=== PATIENT | female | born 1970 | race Caucasian/White ===

== ENCOUNTER → 2016-04-25 | Outpatient (CLI) | payer MEDICARE, OTHER ==
[2014-11-09 08:40] VITALS: BP 154/63
[~2016-04-25] MED LIST: ATOR40TA PO; BACL10TA PO; CETI10TA22 PO; CLON1TAB PO; DIAZ5TAB4 PO; ESOM20CA PO; FLUT16SP NS; GABA-585 PO; GABA600T2 PO; HYDR12.53 PO; IBUP-1060 PO; LEVO40CA PO; LINA145C PO; LORA-434 PO; LURA120T PO; MELA5TAB PO; MULT-245 PO; NAPR500T PO; OMEG1CAP6 PO; OMEP40CA5 PO; OXYC-244 PO; PANT40TA5 PO; PARO40TA45 PO; PNV1TABL71 PO; PRAZ1CAP2 PO; QUET100T4 PO; QUET300T5 PO; QUET50TA5 PO; RIZA10TA10 PO; TRAZ150T55 PO; ZOLP10TA PO; [UNRECOGNIZED DRUG - OTHER]
--- NOTE | 2016-04-25 17:22 | PAIN ---
DATE OF SERVICE: 04/25/2016 PROGRESS NOTE DIAGNOSIS: Lumbar radiculopathy. HISTORY OF PRESENT ILLNESS: The patient is a 45-year-old female who returns for followup status post lumbar epidural steroid injection x 1 in this series on 03/28/2016. The patient reports about 70% improvement in her low back and right lower extremity pain. The patient reports she still has some pain in the right thigh, but it is much better. Still having some significant pain, however, rated as a 7 on a scale of 10, describes as aching and dull with some shooting pain into the right lateral and anterior thigh, mostly with walking. The patient reports she is sleeping better at night, though has been increasing her activity with greater comfort. Still some pain and is still taking Percocet at 7.5 mg, which has not been helping the leg pain as much as it normally would, with recent cold weather that we have had. The patient reports otherwise doing well. No new motor or sensory deficits, no new bowel or bladder incontinence or other complaints. The patient's old chart was reviewed as her current medication regimen updated. Current review of systems updated today as well. PHYSICAL EXAMINATION: VITAL SIGNS: Today, the patient's blood pressure is 129/92, pulse 94, respirations 16, temperature is 98.3 degrees Fahrenheit, height 5 feet 4 inches, and weighs 227 pounds. GENERAL: The patient is awake, alert, oriented, appropriate, very pleasant demeanor. HEENT: Shows normocephalic, atraumatic. Extraocular movements are intact and symmetrical. Oral cavity shows mucous membranes moist and pink. Dentition is intact. NECK: Shows anterior throat supple. CHEST: Shows breath sounds clear to auscultation bilaterally. HEART: Shows S1 and S2 clear. ABDOMEN: Obese, soft, nontender, nondistended. BACK: Shows spine grossly in midline. Lumbar paraspinous muscle shows some diffuse tenderness throughout the upper, middle and lower distribution of paraspinous muscles bilaterally, good rotation and motion; however, both laterally greater than 10 degrees, full extension greater than 10 degrees, forward flexion greater than 45 degrees. EXTREMITIES: The patient's lower extremities show deep tendon reflexes at 1+ in the patellar and tendo calcaneus tendons and are equal. Motor exam is strong with 5/5 dorsiflexion, extension, quadriceps and hamstring flexion and symmetrical. PLAN: Options were discussed with the patient. We will hold on further injections at this time as she feels she is doing fairly well. We will try Medrol Dosepak in the meantime. Also refill the patient's oxycodone at 7.5 mg. The patient was given instruction as well as side effects to be aware with each of the medications. We will follow in approximately 4 weeks. We will plan on second lumbar epidural steroid injection if the pain is any worse at that time or sooner if necessary. KAELYN CUNNINGHAM MD DR: NITIN/mariya JOB#: [id number] / [id number]
== END | disposition home or self-care (01) ==
LOC: PNCL 09:32
PROVIDERS: ATTEND Anesthesiology
DX: M54.16 Radiculopathy, lumbar region (principal)
CPT/HCPCS: G0463

== ENCOUNTER → 2016-05-15 | Outpatient (CLI) | payer MEDICARE, OTHER ==
[2014-11-09 08:40] VITALS: BP 154/63
--- NOTE | 2016-05-15 21:30 | PAIN ---
DATE OF SERVICE: 05/15/2016 PROGRESS NOTE DIAGNOSIS: Lumbar radiculopathy. HISTORY OF PRESENT ILLNESS: The patient is a 45-year-old female who returns for followup status post lumbar epidural steroid injection x 1. The patient reports she did very well about 70-75% improvement in her low back and right lower extremity pain. The patient reports the pain is still present, but much better than it was. The patient has been taking oxycodone 7.5 mg as well and has done fairly well with this with good pain relief and no side effects, again with about 70% improvement with medications alone. The patient reports the pain as a 7 on a scale of 10. It is beginning to increase, but not quite to the point where she is ready for an injection. She likes to wait until this is very much necessary with her pain and level is not to that point by her report. The patient reports it is aching, stabbing, throbbing pain in the low back and legs, but on most days is fairly well controlled without significant impedance of her daily activities. The patient has been sleeping well at night. Reports no new motor or sensory deficits, no new bowel or bladder incontinence or other complaints. Again reports her pain as a 7 on a scale of 10 at its worse. PHYSICAL EXAMINATION: VITAL SIGNS: The patient's blood pressure is 156/84, pulse 101, respirations are 18, temperature 98.9 degrees Fahrenheit. Height is 5 feet 4 inches and weighs 225 pounds. GENERAL: The patient is awake, alert, oriented, appropriate, very pleasant demeanor. HEENT: Shows normocephalic, atraumatic. Extraocular movements are intact and symmetrical. Oral cavity shows mucous membranes are moist and pink. Dentition is intact. NECK: Shows anterior throat supple without palpable lymphadenopathy noted. Swallow reflex is symmetrical. Neck shows full rotation and motion of cervical spine without difficulty. CHEST: Shows normal on inspection. Breath sounds are clear to auscultation bilaterally. HEART: Shows S1 and S2 clear. ABDOMEN: Shows normal on inspection. It is nontender, nondistended. No palpable organomegaly is noted. No rebound or guarding demonstrated. BACK: The patient's back shows grossly midline spine. Lumbar paraspinous muscles show some moderate tenderness with palpation, but without significant radiation. No atrophy, hypertrophy. No tenderness with palpation over the sacrum or sacroiliac regions or the spinous processes. The patient shows good rotation and motion of the lumbar spine, both laterally as well as extension and flexion. EXTREMITIES: Lower extremities show deep tendon reflexes 1+ in the patellar and tendo calcaneus tendons. Motor exam is strong with 5/5 dorsiflexion and extension bilaterally. Peripheral pulses are 1+ posterior tibial and dorsalis pedis pulses. No peripheral edema is noted. No clubbing, no cyanosis. PLAN: Options were discussed with the patient. The patient's old chart was reviewed as her current medications and updated. Current review of systems updated today as well. We will plan on refilling patient's oxycodone with 7.5 mg with instructions and side effects to be aware of discussed. Also, we will plan the patient return in about one month for potential second lumbar epidural steroid injection at that time. If the pain is returning to a significant extent, the patient was encouraged to call prior to that if pain returns to greater degree as well and was counseled as to activity level as well as side effects to be aware of with the medication. Also, maintain the patient's hydration status and walking, exercising, stretching as best as she can with her abilities and the patient will follow up as scheduled or prior if necessary. KAELYN CUNNINGHAM MD DR: NITIN/mariya JOB#: [id number] / [id number]
== END | disposition home or self-care (01) ==
LOC: PNCL 11:14
PROVIDERS: ATTEND Anesthesiology
DX: M54.16 Radiculopathy, lumbar region (principal)
CPT/HCPCS: G0463

== ENCOUNTER → 2016-06-12 | Outpatient (CLI) | payer MEDICARE, OTHER ==
[2014-11-09 08:40] VITALS: BP 154/63
[~2016-06-12] MED LIST changes: +IOHEXOL 180 MG/ML 10 ML VIAL. ONE; +methylPREDNISolone ACETATE 40 MG/ML VIAL. ONE; +methylPREDNISolone ACETATE 80 MG/ML VIAL. ONE
--- NOTE | 2016-06-13 02:52 | PAIN ---
DATE OF SERVICE: 06/12/2016 DIAGNOSES: Lumbar radiculopathy. HISTORY OF PRESENT ILLNESS: The patient is a 45-year-old female who returns for followup status post medication management and lumbar epidural steroid injections. She has had one injection in this series, which was on 03/28/2016. The patient had about 70% improvement after that injection #1. She reports the pain is now returning. She complains that her oxycodone has been less and less effective. We discussed this in some extent with her last visit and today and will change this as she seems to be developing some physiologic tolerance. The patient reports otherwise stabbing pain in the low back, right lower extremity, mostly in the anterior medial aspect of the thigh across the thigh into the medial knee on the right side, worse with walking, standing, change in positions, now waking her from sleep occasionally, but not every night. It is a stabbing, throbbing sensation, rates it 9 on a scale of 10. The patient reports no left-sided symptoms, much worse with standing and walking and bending or flexing, but better with sitting and usually better with lying down, but again this awakens her from sleep more frequently recently, but not every night. PHYSICAL EXAMINATION: VITAL SIGNS: The patient's blood pressure 113/79, pulse 93, respirations 18, temperature 98.4 degrees Fahrenheit. Height is 5 feet 4 inches, weight is 219 pounds. GENERAL: The patient is awake, alert and oriented, appropriate, very pleasant demeanor. HEENT: Head shows normocephalic and atraumatic. Extraocular movements are intact and symmetrical. Oral cavity shows mucous membranes moist and pink. Dentition is intact. NECK: Shows anterior throat supple without palpable lymphadenopathy noted. Swallow reflex is symmetrical. CHEST: Shows normal on inspection. Breath sounds are clear to auscultation bilaterally. HEART: Shows S1 and S2 clear. ABDOMEN: Obese, soft, nontender, nondistended. No palpable organomegaly is noted. No rebound or guarding demonstrated. BACK: Shows spine grossly midline. Lumbar paraspinous muscle shows some moderate tenderness with palpation throughout the upper, middle, lower distribution of paraspinous muscles, but is firm and moderately tender to palpation again without radiation, without atrophy, hypertrophy or asymmetry. No tenderness over the spinous processes over the sacrum and sacroiliac regions as well. EXTREMITIES: Lower extremities show deep tendon reflexes at 1+ in the patellar tendons. Motor exam is strong with dorsiflexion, extension, quadriceps and hamstring flexion 5/5 and equal bilaterally. Peripheral pulses are 1+ posterior tibial and dorsalis pedis pulses. No peripheral edema is noted. Options were discussed with the patient and the patient's old chart was reviewed as her current medication regimen updated. Current review of systems updated today as well. We will proceed with a second lumbar epidural steroid injection in this series with fluoroscopic guidance. Risks were again discussed including, but not limited to bleeding, infection, possibility of epidural hematoma, subsequent neurologic compromise, dural puncture, headaches, spinal cord and/or nerve damage, side effects of steroid medication and poor results regarding pain control. The patient understands and wishes to proceed. The patient will return to clinic in approximately 2 weeks for followup. She was given refill prescription for Motrin 800 mg 3 times daily. Also, we will change the patient's Percocet to hydrocodone at 10 mg to take up to 4 times daily. The patient was given instruction as well as side effects to be aware with the steroid medications, also encouraged to maintain activity, standing, walking and exercising, stretching as well at home, talked about dietary restrictions as well. As she is trying to lose some weight, offered professional dietitian if necessary. The patient is not sure if she wants to do this at this point, but will discuss this again in the future as well. DIAGNOSIS: Lumbar radiculopathy. PROCEDURE: Lumbar epidural steroid injection using a C-arm fluoroscopic guidance under sterile prep and drape using local anesthetic at the L4-L5 level in translaminar fashion. Medication injection is 20 mg Depo-Medrol plus 10 mL of preservative-free normal saline and 2 mL of Isovue for contrast. CONDITION AT DISCHARGE: Stable. The patient tolerated procedure well, had no complications. KAELYN CUNNINGHAM MD DR: NITIN/mariya JOB#: [id number] / [id number]
== END | disposition home or self-care (01) ==
LOC: PNCL 10:35
PROVIDERS: ATTEND Anesthesiology
DX: M54.16 Radiculopathy, lumbar region (principal); E78.00 Pure hypercholesterolemia, unspecified; I10 Essential (primary) hypertension; K21.9 Gastro-esophageal reflux disease without esophagitis; F41.9 Anxiety disorder, unspecified; F32.9 Major depressive disorder, single episode, unspecified; M19.90 Unspecified osteoarthritis, unspecified site; Z98.890 Other specified postprocedural states; Z72.89 Other problems related to lifestyle; Z90.710 Acquired absence of both cervix and uterus; Z87.39 Personal history of other diseases of the musculoskeletal system and connective tissue
CPT/HCPCS: 62323; J1030; J1040

== ENCOUNTER → 2016-07-10 | Outpatient (CLI) | payer MEDICARE, OTHER ==
[2014-11-09 08:40] VITALS: BP 154/63
[~2016-07-10] MED LIST changes: -IOHEXOL 180 MG/ML 10 ML VIAL. ONE; +VORT20TA PO; -methylPREDNISolone ACETATE 40 MG/ML VIAL. ONE; -methylPREDNISolone ACETATE 80 MG/ML VIAL. ONE
--- NOTE | 2016-07-10 23:44 | PAIN ---
DATE OF SERVICE: 07/10/2016 DIAGNOSES: Lumbar radiculopathy with low back pain. HISTORY OF PRESENT ILLNESS: The patient is a 45-year-old female who returns for followup status post lumbar epidural steroid injection x2. The patient reports she did well about 60% improvement after last injection, still pain returning in the low back and right leg. We had tried changing her oxycodone to hydrocodone on her last visit, but the hydrocodone was not helpful or appreciably noticeable with decreasing in pain in the low back and right leg. The patient reports it is 8 on a scale of 0 to 10, stabbing, throbbing without significant decrease with the hydrocodone. The patient reports otherwise doing well. No new motor or sensory deficits, no new bowel or bladder incontinence. The patient's pain is 8 on a scale of 10 currently. PHYSICAL EXAMINATION: VITAL SIGNS: The patient's blood pressure 110/74, pulse 85, respirations 18, temperature 98.4 degrees Fahrenheit, height is 5 feet 4 inches, weighs 223 pounds. GENERAL: The patient is awake, alert, oriented, appropriate, very pleasant demeanor. HEENT: Head shows normocephalic, atraumatic. Extraocular movements are intact, symmetrical. Oral cavity, mucous membranes moist and pink. Dentition is intact. NECK: Shows anterior throat supple without palpable lymphadenopathy noted. Swallow reflex is symmetrical. Neck shows full rotational motion of the cervical spine without difficulty or tenderness. CHEST: Shows normal on inspection. Breath sounds clear to auscultation bilaterally. HEART: Shows S1 and S2 clear. No murmurs auscultated. ABDOMEN: Soft, obese, nontender, nondistended. No palpable organomegaly is noted. No rebound or guarding demonstrated. BACK: Shows spine grossly midline. Moderate tenderness with palpation in the upper, middle and lower distribution to paraspinous muscles bilaterally, but is roughly symmetrical on inspection. Muscle girth is normal and firm without radiation, without asymmetry, no tenderness over the spinous processes, sacrum or sacroiliac regions. The patient shows good rotation and motion of the lumbar spine, both laterally as well as extension and flexion without difficulty. EXTREMITIES: Lower extremities show deep tendon reflexes 1+ in the patellar and tendo calcaneus tendons are equal. Motor exam is strong with 5/5 dorsiflexion and extension as well as quadriceps and hamstring flexion. Options were discussed with the patient and the patient's old chart was reviewed as her current medication regimen and updated. Current review of systems updated to date as well. We will change back to the oxycodone at 10 mg instead of hydrocodone as she is not having any appreciable results with this. Also, we will plan on third lumbar epidural steroid injection on her next visit in about 4 weeks. The patient was given instructions as well as side effects to be aware with medication and will follow up as scheduled. KAELYN CUNNINGHAM MD DR: NITIN/mariya JOB#: [id number] / [id number] ANIVAL Cole MD
== END | disposition home or self-care (01) ==
LOC: PNCL 10:28
PROVIDERS: ATTEND Anesthesiology
DX: M54.16 Radiculopathy, lumbar region (principal)
CPT/HCPCS: G0463

== ENCOUNTER → 2016-08-07 | Outpatient (CLI) | payer MEDICARE, OTHER ==
[2014-11-09 08:40] VITALS: BP 154/63
[~2016-08-07] MED LIST changes: +OXYC-250 PO; +TEST5GEL TP; +methylPREDNISolone ACETATE 40 MG/ML VIAL. ONE; +methylPREDNISolone ACETATE 80 MG/ML VIAL. ONE
--- NOTE | 2016-08-08 00:53 | PAIN ---
DATE OF SERVICE: 08/07/2016 PROGRESS NOTE FOR PAIN CLINIC DIAGNOSIS: Lumbar radiculopathy at ____. HISTORY OF PRESENT ILLNESS: The patient is a 45-year-old female, who returns for followup status post lumbar epidural steroid injections as well as medication management with oxycodone and we changed her dose to 10 mg on her Percocet. At last visit, she reports a significant improvement with this, but still has significant pain across the low back into the right lower extremity as it was previously. The patient reports no new motor or sensory deficits, no new bowel or bladder incontinence, but still pain in the low back, right leg radiating to the anterior thigh, medial thigh and medial lower leg ranged as 7 on a scale of 10, worse with walking and standing, better with sitting down, lying down as a 3 on a scale of 10, but it does awaken her from sleep at least once at night here within the past couple of weeks. The patient reports no new motor or sensory deficits, no new bowel or bladder incontinence or other complaints. PHYSICAL EXAMINATION: VITAL SIGNS: The patient's blood pressure 108/77, pulse 85, respirations are 20, temperature is 98.3 degrees Fahrenheit, weight is 219 pounds. GENERAL: The patient is awake, alert, oriented, appropriate, very pleasant demeanor. HEENT: Shows normocephalic, atraumatic. Extraocular movements are intact and symmetrical. Oral cavity, mucous membranes are moist and pink. Dentition is intact. NECK: Shows anterior throat supple without palpable lymphadenopathy noted. Swallow reflex is symmetrical. CHEST: Shows normal on inspection. Breath sounds clear to auscultation bilaterally. HEART: Shows S1 and S2 clear. No murmurs auscultated. ABDOMEN: Obese, soft, nontender, nondistended. No palpable organomegaly noted. BACK: The patient's back shows spine grossly midline. Slight exaggeration of thoracic kyphosis and mild flattening of lumbar lordotic curvature. Lumbar paraspinous musculature appears symmetrical on inspection with palpation shows some very mild tenderness with palpation in the lower lumbar distribution only, but without radiation or asymmetry. No tenderness over the sacrum or sacroiliac regions. The patient shows good rotation and motion of the lumbar spine, both laterally as well as extension and flexion without significant pain reported. EXTREMITIES: Lower extremities show deep tendon reflexes 1+ in the patellar and tendo calcaneus tendons are equal. Motor exam is strong with 5/5 dorsiflexion, extension, quadriceps and hamstring flexion equal. Options were discussed with the patient. We will proceed with a lumbar epidural steroid injection today is the third in this series with fluoroscopic guidance. Risks were again discussed including, but not limited to bleeding, infection, possibility of epidural hematoma, subsequent neurologic compromise, dural puncture, headache, spinal cord and/or nerve damage, side effects of steroid medication and poor results regarding pain control. The patient understands and wishes to proceed. The patient will return to clinic in approximately 2 weeks for followup. She was counseled on return appointment, activity level and side effects to be aware of. The patient given refill prescription on her medication oxycodone with instructions, side effects to be aware of discussed as well. DIAGNOSIS: Lumbar radiculopathy. PROCEDURE: Lumbar epidural steroid injection in translaminar approach at the L4-L5 level using a C-arm fluoroscopic guidance under sterile prep and drape using local anesthetic. MEDICATIONS INJECTED: Depo-Medrol 120 mg plus 10 mL of preservative-free normal saline and 2 mL of Isovue for contrast. CONDITION AT DISCHARGE: Stable. The patient tolerated procedure well, had no complications. KAELYN CUNNINGHAM MD DR: NITIN/mariya JOB#: [id number] / [id number]
== END | disposition home or self-care (01) ==
LOC: PNCL 10:39
PROVIDERS: ATTEND Anesthesiology
DX: M54.16 Radiculopathy, lumbar region (principal); E78.00 Pure hypercholesterolemia, unspecified; I10 Essential (primary) hypertension; M19.90 Unspecified osteoarthritis, unspecified site; F41.9 Anxiety disorder, unspecified; F32.9 Major depressive disorder, single episode, unspecified; Z72.89 Other problems related to lifestyle; Z72.0 Tobacco use; Z90.710 Acquired absence of both cervix and uterus
CPT/HCPCS: 62323; J1030; J1040

== ENCOUNTER → 2016-09-25 | Outpatient (CLI) | payer MEDICARE, OTHER ==
[2014-11-09 08:40] VITALS: BP 154/63
[~2016-09-25] MED LIST changes: +IOHEXOL 180 MG/ML 10 ML VIAL. ONE
--- NOTE | 2016-09-25 08:36 | PN ---
DATE: 09/25/2016 PROGRESS NOTE FOR PAIN CLINIC DIAGNOSES: Lumbar radiculopathy. HISTORY OF PRESENT ILLNESS: The patient is a 46-year-old female who returns for followup, status post lumbar epidural steroid injections with good results, most recently on 08/07/2016. The patient did very well with this, reports approximately 70% improvement initially, now with pain returning in the low back and right leg as it was previously. The patient reports it as a 10 on a scale of 10, it is cramping, stabbing, sharp, severe, constant and becomes unbearable with walking and standing, better with lying down or sitting. She is sleeping about 8 hours a night, does not awaken her from sleep when she is lying down. The patient reports no new motor or sensory deficits, no new bowel or bladder incontinence or other complaints. PHYSICAL EXAMINATION: VITAL SIGNS: The patient's blood pressure is 130/67, pulse 67, respirations 18, temperature 98.1 degrees Fahrenheit. Height is 5 feet 4 inches, weighs 219 pounds. GENERAL: The patient is awake, alert, oriented, appropriate, has a very pleasant demeanor. HEENT: Head shows normocephalic, atraumatic. Extraocular movements are intact and symmetrical. Oral cavity shows mucous membranes moist and pink. Dentition is intact. NECK: Shows anterior throat supple without palpable lymphadenopathy noted. Swallow reflex is symmetrical. CHEST: Shows normal on inspection. Breath sounds are clear to auscultation bilaterally. HEART: Shows S1 and S2. ABDOMEN: Soft, obese, nontender, nondistended. No palpable organomegaly. There is no rebound or guarding demonstrated. BACK: Shows spine grossly in the midline. Slight exaggeration of thoracic kyphosis. Lumbar lordotic curvature mildly flattened. With inspection shows symmetrical paraspinous musculature. With palpation shows some moderate tenderness, but only diffusely in the lower lumbar distribution without radiation. EXTREMITIES: Lower extremities showed deep tendon reflexes 1+ in the patellar and tendo calcaneus tendons are equal. Motor exam is strong with dorsiflexion and extension, rated at 5/5 and symmetrical. Options were discussed with the patient. The patient's old chart was reviewed as her current medication regimen updated. Current review of systems updated today as well. We will proceed with a lumbar epidural steroid injection, today is the first in the series with fluoroscopic guidance. Risks were again discussed including, but not limited to bleeding, infection, possibility of epidural hematoma, subsequent neurologic compromise, dural punctures, headaches, spinal cord and/or nerve damage, side effects of steroid medication and poor results regarding pain control. The patient understands and wishes to proceed. The patient will return to clinic in approximately 2 weeks for followup, was counseled on return appointment, activity level and side effects to be aware of. The patient was also given refill prescriptions for oxycodone 10 mg with instructions and side effects to be aware of discussed as well. DIAGNOSIS: Lumbar radiculopathy. PROCEDURE: Lumbar epidural steroid injection in translaminar approach at the L5-S1 level using C-arm fluoroscopic guidance under sterile prep and drape using local anesthetic. Medication injected is 120 mg Depo-Medrol plus 10 mL preservative free normal saline and 2 mL of Isovue for contrast. CONDITION AT DISCHARGE: Stable. The patient tolerated the procedure well, had no complications. KAELYN CUNNINGHAM MD DR: NITIN/mariya JOB#: [id number] / [id number]
== END ==
LOC: PNCL 07:33
PROVIDERS: ATTEND Anesthesiology
DX: M54.16 Radiculopathy, lumbar region (principal)
CPT/HCPCS: 62323; J1030; J1040

== ENCOUNTER → 2016-10-23 | Outpatient (CLI) | payer MEDICARE, OTHER ==
[2014-11-09 08:40] VITALS: BP 154/63
[~2016-10-23] MED LIST changes: -IOHEXOL 180 MG/ML 10 ML VIAL. ONE; -OXYC-244 PO; -OXYC-250 PO; +OXYC-327 PO; +OXYC-328 PO; -PARO40TA45 PO; +PARO40TA61 PO; +TRAZ150T49 PO; -TRAZ150T55 PO; -methylPREDNISolone ACETATE 40 MG/ML VIAL. ONE; -methylPREDNISolone ACETATE 80 MG/ML VIAL. ONE
== END | disposition home or self-care (01) ==
LOC: PNCL 08:20
PROVIDERS: ATTEND Anesthesiology
DX: M54.16 Radiculopathy, lumbar region (principal)
CPT/HCPCS: G0463

== ENCOUNTER 2016-11-19 16:09 | Inpatient (IN) | payer MEDICARE, OTHER ==
[~2016-11-19] VITALS: Ht 162.6 cm; Wt 94.9 kg
[2016-11-19 16:55] VITALS: BP 125/82
[2016-11-19 17:49] LABS: BASO # 0.1 x10^3/uL (0.0-0.2); BASO % 0 % (0-3); EOS % 0 % (0-3); HEMATOCRIT 50.9 % (36.0-47.0); HEMOGLOBIN 16.5 g/dL (12.0-15.5); LYMPH # 0.8 x10^3/uL (1.0-4.8); LYMPH % 6 % (24-48); MEAN CORPUSCULAR HEMOGLOBIN 31 pg (25-35); MEAN CORPUSCULAR HGB CONC 32 g/dL (31-37); MEAN CORPUSCULAR VOLUME 96 fL (79-100); MONO % 4 % (0-9); NEUT % 90 % (31-73); PLATELET COUNT 163 x10^3/uL (140-400); RED BLOOD COUNT 5.32 x10^6/uL (3.50-5.40); WHITE BLOOD COUNT 14.4 x10^3/uL (4.0-11.0)
[2016-11-19 18:10] LABS: PLT ESTIMATE ADEQUATE (ADEQUATE)
[2016-11-19 18:20] LABS: ALBUMIN 3.3 g/dL (3.4-5.0); ALBUMIN/GLOBULIN RATIO 0.8 (1.0-1.7); CALCIUM 9.2 mg/dL (8.5-10.1); CREATININE 1.1 mg/dL (0.6-1.0); POTASSIUM 4.3 mmol/L (3.5-5.1); TOTAL BILIRUBIN 0.5 mg/dL (0.2-1.0); TOTAL PROTEIN 7.7 g/dL (6.4-8.2)
[2016-11-19 19:00] VITALS: BP 128/84
[2016-11-19] MEDS: IPRATRPIUM/ALBUTEROL 0.5/2.5MG 3 ML NEBU. NEB SCH ×2 (19:36→20:00)
[2016-11-19] MEDS ORDERED: oxyCODONE/APAP 10/325 1 TAB TABLET PO PRN (20:00)
[2016-11-19 20:10] VITALS: BP 125/82
[2016-11-19] MEDS ORDERED: QUEtiapine 100 MG TABLET. PO SCH (21:00)
[2016-11-19] MEDS: traZODone 50 MG TABLET. PO SCH (21:25)
[2016-11-19] MEDS: NICOTINE 21MG PATCH. TD SCH (21:25)
[2016-11-19] MEDS: methylPREDNISolone SOD SUCC PF 40 MG/ML VIAL. IV SCH (21:25)
[2016-11-19] MEDS: oxyCODONE/APAP 10/325 1 TAB TABLET PO PRN (21:35)
[2016-11-19 23:00] VITALS: BP 124/74
--- NOTE | 2016-11-19 23:41 | PAIN PROC ---
DATE OF SERVICE: 11/19/2016 CHIEF COMPLAINT: Respiratory distress. HISTORY OF PRESENT ILLNESS: A 46-year-old white female with history of chronic tobacco use, has had increasing cough, shortness of breath and fatigue for 3 days. She denies sputum production, chest pain, hemoptysis, chills, fever or other specific complaints. She was moderately hypoxic in the office with a saturation of 80% and was admitted for respiratory support. PAST HISTORY: Multiple psych meds listed per the chart. ALLERGIES: DOXYCYCLINE NOTED. SHE JUST FINISHED TAKING SOME PREDNISONE FOR A SKIN REACTION. PAST SURGICAL HISTORY: Surgically, she has had a hysterectomy, rectovaginal surgery, appendectomy, tonsillectomy and eye surgeries as well as right wrist fracture and repair. SOCIAL HISTORY: Moderately heavy smoker, a pack and a half a day. She is single, not sexually active and nondrinker as well. FAMILY HISTORY: Positive for heart disease and diabetes in her father, otherwise unremarkable. REVIEW OF SYSTEMS: No other specific complaints. OBJECTIVE: ENT: cyanotic lips, otherwise all within normal limits. NECK: No nodes, masses or thyroid enlargement. LUNGS: Bilateral inspiratory crackles and expiratory wheezes, mild tachypnea. CARDIOVASCULAR: Regular rate. Heart rate 100, no murmur. ABDOMEN: Obese, soft and nontender. EXTREMITIES: Good pedal and radial pulses, 2-3+; nail bed clubbing, no edema, no joint or skin lesions. SKIN: Skin is very dry. NEUROLOGIC: Physiologic flat affect, consistent with medications, but no focal findings, otherwise oriented x 4. ASSESSMENT: Clinical chronic obstructive pulmonary disease with secondary hypoxia, suspect the underlying respiratory infection is most likely cause. PLAN: As ordered. ANIVAL RODRIGUEZ MD DR: FLORENCE/mariya JOB#: [id number] / [id number]
[2016-11-20 03:00] VITALS: BP 134/72
[2016-11-20] MEDS: oxyCODONE/APAP 10/325 1 TAB TABLET PO PRN ×4 (05:15→20:48)
--- NOTE | 2016-11-20 05:22 | ACF ---
Admission Forms Criteria COPD Clinical Indications for Admission to Inpatient Care (Place 'X' for any and all applicable criteria): Admission is indicated for ANY ONE of the following (1)(2)(3): [X]I. Acute exacerbation by high-risk comorbidity (e.g., pneumonia, dysrhythmia, heart failure, pleural effusion, pneumothorax) or severe underlying COPD (e.g., steroid dependent) [ ]II. Inpatient admission required rather than observation care (see Chronic Obstructive Pulmonary Disease: Observation Care) because of ANY ONE of the following: [ ]a) New or pre-existing signs or symptoms of COPD (eg, dyspnea or Tachypnea at rest or with minimal activity) that persist despite outpatient and observation care treatment [ ]b) New-onset hypoxemia (room air SaO2 less than 90%, PO2 less than 60 mm Hg (8.0 kPa)) that persists despite outpatient and observation care treatment [ ]c) Worsening of pre-existing hypoxemia (eg, new or increased requirement for supplemental oxygen to maintain oxygenation at baseline level) that persists despite outpatient and observation care treatment, with oxygen treatment needs performable only in acute inpatient setting [ ]d) Hypercarbia (PCO2 greater than 40 mm Hg (5.3 kPa))-induced respiratory acidosis (pH less than 7.35) that persists despite outpatient and observation care treatment [ ]e) Supplemental oxygen or respiratory treatments for over 24 hours that are performable only in acute inpatient setting [ ]f) Chest tube placement with active evacuation (e.g., suction, drainage) (5) [ ]g) Other condition, treatment or monitoring requiring inpatient admission [ ]III. Planned invasive surgical or diagnostic procedures requiring acute- care hospitalization [ ]IV. Acute respiratory failure (e.g., uncompensated hypercarbia, severe hypoxemia) [ ]V. Severe comorbid condition (e.g., severe steroid myopathy, acute vertebral fracture) that has acutely worsened pulmonary function [ ]. Confusion state, lethargy, obtundation, stupor or coma Extended stay beyond goal length of stay may be needed for (31)(32): [ ]a ) Respiratory Failure. [ ]b) Severe or persisting hypoxemia or hypercarbia [ ]c) Severe or persistent dyspnea [ ]d) Comorbidities (e.g. chronic heart failure, atrial fibrillation with rapid response, pneumonia) [ ]e) Malnutrition The original [facility] content created by [facility] has been revised. The portions of the content which have been revised are identified through the use of italic text or in bold, and [facility] has neither reviewed nor approved the modified material. All other unmodified content is copyright [facility]. Please see references footnoted in the original [facility] edition 2016 Admission Criteria Met?: Yes KIT NI Nov 20, 2016 05:22
[2016-11-20 07:00] VITALS: BP 122/75
--- NOTE | 2016-11-20 07:17 | RAD ---
Chest, 2 views, 11/19/2016: History: Hypoxia Comparison is made to a study from 06/26/2013. The heart size is normal. There are mild patchy bilateral pulmonary infiltrates. A lesser degree of infiltrate was present on the previous study. The pulmonary vascularity is somewhat poorly defined. No pleural fluid is seen. IMPRESSION: Mild bilateral pulmonary infiltrates suggesting pneumonia. Pulmonary edema or chronic lung disease are less likely possibilities.
[2016-11-20] MEDS: PANTOPRAZOLE 40 MG TABLET.DR. PO SCH (08:10)
[2016-11-20] MEDS: LURASIDONE 40 MG TABLET. PO SCH (08:10)
[2016-11-20] MEDS: NICOTINE 21MG PATCH. TD SCH (08:10)
[2016-11-20] MEDS: methylPREDNISolone SOD SUCC PF 40 MG/ML VIAL. IV SCH ×2 (08:11→20:47)
[2016-11-20] MEDS ORDERED: clonazePAM 1 MG TABLET PO PRN (08:15)
[2016-11-20] MEDS: IPRATRPIUM/ALBUTEROL 0.5/2.5MG 3 ML NEBU. NEB SCH ×4 (08:21→19:41)
--- NOTE | 2016-11-20 08:23 | PDOC ---
Provider Note Provider Note vss, low temp, 90% on 3l, bilat infiltrates per cxr- labs ok- diffuse wheezes and rhonchi persist, no dyspnea- will use levo at 750, rest same, rt- expect 2- 3 days ANIVAL RODRIGUEZ MD Nov 20, 2016 08:23
[2016-11-20] MEDS: LINACLOTIDE 145 MCG CAPSULE. PO SCH (08:54)
[2016-11-20] MEDS ORDERED: NON FORMULARY ITEM (Vortioxetine Hydrobromide (Trintellix) 20 MG) PO SCH (09:00)
[2016-11-20] MEDS ORDERED: PANTOPRAZOLE 40 MG TABLET.DR. PO SCH (09:00)
[2016-11-20] MEDS ORDERED: NICOTINE 21MG PATCH. TD SCH (09:00)
[2016-11-20] MEDS ORDERED: NON FORMULARY ITEM (Lurasidone Hcl (Latuda) 120 MG) PO SCH (09:00)
[2016-11-20 10:54] VITALS: BP 142/70
[2016-11-20 14:42] VITALS: BP 112/71
--- NOTE | 2016-11-20 18:00 | HP ---
ADMIT DATE: 11/19/2016 CHIEF COMPLAINT: Respiratory distress. HISTORY OF PRESENT ILLNESS: A 46-year-old white female with history of chronic tobacco use, has had increasing cough, shortness of breath and fatigue for 3 days. She denies sputum production, chest pain, hemoptysis, chills, fever or other specific complaints. She was moderately hypoxic in the office with a saturation of 80% and was admitted for respiratory support. PAST HISTORY: Multiple psych meds listed per the chart. ALLERGIES: DOXYCYCLINE NOTED. SHE JUST FINISHED TAKING SOME PREDNISONE FOR A SKIN REACTION. PAST SURGICAL HISTORY: Surgically, she has had a hysterectomy, rectovaginal surgery, appendectomy, tonsillectomy and eye surgeries as well as right wrist fracture and repair. SOCIAL HISTORY: Moderately heavy smoker, a pack and a half a day. She is single, not sexually active and nondrinker as well. FAMILY HISTORY: Positive for heart disease and diabetes in her father, otherwise unremarkable. REVIEW OF SYSTEMS: No other specific complaints. OBJECTIVE: ENT: cyanotic lips, otherwise all within normal limits. NECK: No nodes, masses or thyroid enlargement. LUNGS: Bilateral inspiratory crackles and expiratory wheezes, mild tachypnea. CARDIOVASCULAR: Regular rate. Heart rate 100, no murmur. ABDOMEN: Obese, soft and nontender. EXTREMITIES: Good pedal and radial pulses, 2-3+; nail bed clubbing, no edema, no joint or skin lesions. SKIN: Skin is very dry. NEUROLOGIC: Physiologic flat affect, consistent with medications, but no focal findings, otherwise oriented x 4. ASSESSMENT: Clinical chronic obstructive pulmonary disease with secondary hypoxia, suspect the underlying respiratory infection is most likely cause. PLAN: As ordered. ANIVAL RODRIGEUZ MD DR: FLORENCE/mariya JOB#: [id number] / [id number]
[2016-11-20 19:00] VITALS: BP 117/73
[2016-11-20] MEDS: traZODone 50 MG TABLET. PO SCH (20:48)
[2016-11-20] MEDS: QUEtiapine 100 MG TABLET. PO SCH (20:48)
[2016-11-20] MEDS ORDERED: NON FORMULARY ITEM (Trazodone Hcl 1 TAB) PO SCH (21:00)
[2016-11-20 23:00] VITALS: BP 108/73
[2016-11-21] MEDS: oxyCODONE/APAP 10/325 1 TAB TABLET PO PRN ×6 (01:20→21:50)
[2016-11-21] MEDS: IPRATRPIUM/ALBUTEROL 0.5/2.5MG 3 ML NEBU. NEB SCH ×4 (06:57→19:30)
[2016-11-21] MEDS: NICOTINE 21MG PATCH. TD SCH (07:39)
[2016-11-21] MEDS: PANTOPRAZOLE 40 MG TABLET.DR. PO SCH (07:39)
[2016-11-21 07:40] VITALS: BP 108/66
[2016-11-21] MEDS: LURASIDONE 40 MG TABLET. PO SCH (07:57)
--- NOTE | 2016-11-21 08:14 | PDOC ---
Provider Note Provider Note NO TEMP, o2 STILL LOW / 90 ON 3 l- NO SPUTUM- STILL EXP WHEEZES, DRY COUGH- will do 6 min walk, po pred, discussed smoking cessation ANIVAL RODRIGUEZ MD Nov 21, 2016 08:14
[2016-11-21] MEDS: predniSONE 10 MG TABLET PO SCH (09:15)
[2016-11-21] MEDS: LINACLOTIDE 145 MCG CAPSULE. PO SCH (09:15)
[2016-11-21 10:00] VITALS: BP 126/72
[2016-11-21 15:00] VITALS: BP 126/75
[2016-11-21 19:00] VITALS: BP 117/74
[2016-11-21] MEDS: traZODone 50 MG TABLET. PO SCH (20:01)
[2016-11-21] MEDS: QUEtiapine 100 MG TABLET. PO SCH (20:01)
[2016-11-21 23:00] VITALS: BP 109/73
[2016-11-22] MEDS: oxyCODONE/APAP 10/325 1 TAB TABLET PO PRN ×2 (01:53→07:44)
[2016-11-22] MEDS: IPRATRPIUM/ALBUTEROL 0.5/2.5MG 3 ML NEBU. NEB SCH ×2 (06:57→11:31)
[2016-11-22 07:00] VITALS: BP 115/72
[2016-11-22] MEDS: predniSONE 10 MG TABLET PO SCH (07:45)
[2016-11-22] MEDS: LINACLOTIDE 145 MCG CAPSULE. PO SCH (07:45)
[2016-11-22] MEDS: PANTOPRAZOLE 40 MG TABLET.DR. PO SCH (07:45)
[2016-11-22] MEDS: LURASIDONE 40 MG TABLET. PO SCH (07:45)
[2016-11-22] MEDS: NICOTINE 21MG PATCH. TD SCH (07:47)
--- NOTE | 2016-11-22 08:32 | DISCH ---
DISCHARGE INSTRUCTIONS Condition on Discharge Condition on Discharge: Stable Activity After Discharge Activity Instructions for Disc: No restrictions Other activity instructions: no smoking Diet after Discharge Diet after Discharge: Regular Follow-Up Follow up with: dr villavicencio 1 week ANIVAL RODRIGUEZ MD Nov 22, 2016 08:32
--- NOTE | 2016-11-22 08:44 | PDOC ---
Provider Note Provider Note [id number] ANIVAL RODRIGUEZ MD Nov 22, 2016 08:44
[2016-11-22] MEDS ORDERED: TRINTELLIX PO SCH (09:00)
--- NOTE | 2016-11-22 09:10 | DS ---
DATE OF DISCHARGE: 11/22/2016 HOSPITAL SUMMARY: A 46-year-old white female with chronic tobacco abuse and COPD, comes in with increasing cough and shortness of breath. She has bilateral infiltrates on chest x-ray, mild leukocytosis and otherwise the lab was normal. Sputum was not produced and a 6-minute walk showed desaturation consistent with need for home oxygen. She was treated with IV steroids and IV Levaquin, and is comfortable and doing better and is willing to take home oxygen and is comfortable to be discharged and followed as an outpatient. FINAL DIAGNOSES: 1. Bilateral pneumonia. 2. Oxygen-dependent chronic obstructive pulmonary disease. OPERATIONS, PROCEDURES, COMPLICATIONS, AND CONSULTATIONS: None. DISPOSITION: Five more days of Levaquin 500 mg daily, prednisone taper over the next 10 days. We will start Symbicort 160 two puffs twice a day and Spiriva one capsule inhaled daily as well along with all same home meds. May need ProAir inhaler as well. We will see how she does on the current inhaler first. Office followup in 1 week. Complete tobacco avoidance was encouraged to allow continued possibility of improvement. ANIVAL RODRIGUEZ MD DR: FLORENCE/mariya JOB#: [id number] / [id number]
[2016-11-22 10:43] VITALS: BP 118/69
== END 2016-11-22 12:49 | disposition home or self-care (01) | DRG 189 ==
LOC: 5 SOUTH 16:15
PROVIDERS: ADMIT Family Medicine; ATTEND Family Medicine
DX: J96.21 Acute and chronic respiratory failure with hypoxia (principal); J18.9 Pneumonia, unspecified organism; J44.0 Chronic obstructive pulmonary disease with (acute) lower respiratory infection; F17.210 Nicotine dependence, cigarettes, uncomplicated; J44.9 Chronic obstructive pulmonary disease, unspecified; Z90.710 Acquired absence of both cervix and uterus; Z83.3 Family history of diabetes mellitus; Z82.49 Family history of ischemic heart disease and other diseases of the circulatory system; Z99.81 Dependence on supplemental oxygen
CPT/HCPCS: 36415; 71020; 80053; 84443; 85007; 85027; 94250; 94620; 94640; 94660; 94760; J1956; J2920; J7512; J7620

== ENCOUNTER → 2016-11-27 | Outpatient (CLI) | payer MEDICARE, OTHER ==
[2016-11-22 10:43] VITALS: BP 118/69
[~2016-11-27] MED LIST changes: +IOHEXOL 180 MG/ML 10 ML VIAL. ONE; +methylPREDNISolone ACETATE 40 MG/ML VIAL. ONE; +methylPREDNISolone ACETATE 80 MG/ML VIAL. ONE
--- NOTE | 2016-11-28 00:08 | PAIN ---
DATE OF SERVICE: 11/27/2016 PROGRESS NOTE FOR PAIN CLINIC DIAGNOSIS: Lumbar radiculopathy. HISTORY OF PRESENT ILLNESS: The patient is a 46-year-old female who returns for followup status post lumbar epidural steroid injection x 1 and medication management with oxycodone. The patient reports she has been doing very well with the last shot was helpful but not as helpful she has had in the past. Still has some pain in the low back and right lower extremity radiating in the posterior lateral aspect of the thigh, anterior medial thigh, medial lower leg, and across the low back bilaterally, again worse on the right side. The patient reports no new motor or sensory deficits, no new bowel or bladder incontinence, taking her oxycodone with good tolerance about 60-70% improvement, but without any significant side effects. The patient is maintaining hydration level as well. The patient reports her pain is a 10 on a scale of 10 at its worst, it is currently a 3 on a scale of 10, they can be as high as 9 on average. The patient reports it is a sharp shooting into the right leg with burning, stabbing pain, constant, severe, unbearable but is also off and on in quality. The patient reports it wakes her from sleep occasionally, but not every night. She sleeps 7-8 hours a night. She sleeps well and she feels better with lying down or sitting as opposed to standing, which exacerbates the pain. PHYSICAL EXAMINATION: VITAL SIGNS: The patient's blood pressure 116/47, pulse 69, respirations 20, temperature 98.4 degrees Fahrenheit, height 5 feet 4 inches, weight is 213 pounds. GENERAL: The patient is awake, alert, oriented, appropriate, very pleasant demeanor. HEENT: Head shows normocephalic, atraumatic. Extraocular movements are intact and symmetrical. Oral cavity shows mucous membranes moist and pink. Dentition is intact. NECK: Shows anterior throat supple. CHEST: Shows normal on inspection. Breath sounds are clear to auscultation bilaterally. HEART: Shows S1 and S2, clear. Deep breath does exacerbate a cough as the patient reports she has had some recent pneumonia as earlier as last week, but this was treated with IV antibiotics. ABDOMEN: Soft, nontender, nondistended. No palpable organomegaly. There is no rebound or guarding demonstrated. BACK: Shows spine grossly in the midline. Lumbar paraspinous musculature shows some moderate tenderness with palpation, but symmetrical and only diffusely tender without radiation. No tenderness over the sacrum or sacroiliac regions. The patient shows good rotation and motion of the lumbar spine, both laterally as well as extension and flexion without difficulty. EXTREMITIES: Lower extremities showed deep tendon reflexes 1+ in the patellar and tendo-calcaneus tendons. Motor exam is strong with dorsiflexion, extension, quadriceps, and hamstring flexion equal and 5/5 and symmetrical. Options were discussed with the patient at this time. The patient's old chart was reviewed as her current medication regimen updated. Current review of systems updated today as well. We will proceed with the second in the series lumbar epidural steroid injection with fluoroscopic guidance. Risks were again discussed including, but not limited to bleeding, infection, possibility of epidural hematoma, subsequent neurologic compromise, dural puncture, headaches, spinal cord and/or nerve damage, side effects of steroid medication and poor results regarding pain control. The patient understands and wishes to proceed. The patient will return to the clinic in approximately 2 weeks for followup, was counseled on return appointment, activity level, and side effects to be aware of. DIAGNOSIS: Lumbar radiculopathy. PROCEDURE: Lumbar epidural steroid injection in translaminar approach at the L4-5 level using C-arm fluoroscopic guidance under sterile prep and drape using local anesthetic. Medication injected is 120 mg Depo-Medrol plus 10 mL preservative-free normal saline and 2 mL Isovue for contrast. CONDITION AT DISCHARGE: Stable. The patient tolerated the procedure well, had no complications. Prescription was given for 60 day supply of oxycodone 10 mg with instructions and side effects to be aware of. KAELYN CUNNINGHAM MD DR: NITIN/mariya JOB#: [id number] / [id number]
== END | disposition home or self-care (01) ==
LOC: PNCL 13:20
PROVIDERS: ATTEND Anesthesiology
DX: M54.16 Radiculopathy, lumbar region (principal); E78.00 Pure hypercholesterolemia, unspecified; I10 Essential (primary) hypertension; K21.9 Gastro-esophageal reflux disease without esophagitis; F41.9 Anxiety disorder, unspecified; F32.9 Major depressive disorder, single episode, unspecified; Z86.69 Personal history of other diseases of the nervous system and sense organs; Z87.39 Personal history of other diseases of the musculoskeletal system and connective tissue; Z72.89 Other problems related to lifestyle; Z88.6 Allergy status to analgesic agent; Z88.8 Allergy status to other drugs, medicaments and biological substances
CPT/HCPCS: 62323; J1030; J1040

== ENCOUNTER → 2017-01-22 | Outpatient (CLI) | payer MEDICARE, OTHER ==
--- NOTE | 2017-01-22 19:06 | PAIN ---
DATE OF SERVICE: 01/22/2017 DIAGNOSIS: Lumbar radiculopathy. HISTORY OF PRESENT ILLNESS: The patient is a 46-year-old female who returns for followup status post lumbar epidural steroid injection x 2, last injection on 11/27/2016. The patient did very well, there was about 75% improvement in the pain in her low back and bilateral lower extremities. The patient reports the pain returning now, more in the right leg than the left, but present bilaterally with increased walking and standing, also with prolonged sitting, better with lying down, but it has been waking her from sleep over the past few weeks, sleeping about 4 hours at a time and she has to get out of bed, take pain medication, and get back to sleep. She has also been taking Percocet with good results and no significant side effects with the exception of some constipation, which is taking Linzess for and trying to increase her hydration. The patient reports that she has a rash on both of her legs as well as both her arms. She has had it for about a month and she is somewhat itchy. Other than that, no new lower sensory deficits or other changes. The patient rates her pain as a 10 on a scale of 10 at its worst, is a 6 on average and a 3 on a scale of 10 at least, and is a 3 today. PHYSICAL EXAMINATION: VITAL SIGNS: The patient's blood pressure is 126/71, respirations are 18, pulse is 86, temperature is 98.2 degrees Fahrenheit, height is 5 feet 4 inches, weight is 201 pounds. GENERAL: The patient is awake, alert, oriented, appropriate, very pleasant demeanor. HEENT: Head is normocephalic, atraumatic. Extraocular movements are intact, symmetrical. Oral cavity, mucous membranes are moist and pink. Dentition is intact. NECK: Shows anterior throat is supple without palpable lymphadenopathy noted. Swallow reflex is symmetrical. CHEST: Shows normal on inspection. Breath sounds are clear to auscultation bilaterally. HEART: Shows S1 and S2 clear. ABDOMEN: Obese, soft, nontender, nondistended. BACK: Shows spine grossly midline. Lumbar paraspinous musculature shows symmetrical with palpation shows moderate tenderness to palpation, but only in the lower lumbar distribution diffusely. The patient does show good rotational motion bilaterally as well as extension and flexion of the lumbar spine without significant pain or difficulty reported. EXTREMITIES: Lower extremities show deep tendon reflexes 1+ in patellar and tendo-calcaneus tendons, are equal. Motor exam is strong with 5/5 dorsiflexion and extension, and equal bilaterally. Pulses are 1+ in posterior tibial and dorsalis pedal pulses. No peripheral edema is noted. Options were discussed with the patient. The patient's old chart was reviewed as her current medication regimen updated. Current review of systems is updated today as well, and we will proceed with the third in this series of lumbar epidural steroid injection with fluoroscopic guidance. Risks were again discussed including, but not limited to bleeding, infection, possibility of epidural hematoma and subsequent neurological compromise, dural puncture, headaches, spinal cord and/or nerve damage, side effects to steroid medication and poor results regarding pain control. The patient understands and wishes to proceed. The patient will return to the clinic in approximately 2 weeks for followup. She was counseled on return appointment, activity level and side effects to be aware of. DIAGNOSES: Lumbar radiculopathy. PROCEDURE: Lumbar epidural steroid injection translaminar approach L4-L5 level using fluoroscopic guidance under sterile prep and drape using local anesthetic. MEDICATION INJECTED: A total of 120 mg Depo-Medrol plus 10 mL of preservative-free normal saline and 2 mL of Isovue for contrast. CONDITION AT DISCHARGE: Stable. The patient tolerated the procedure well, had no complications. KAELYN CUNNINGHAM MD DR: NITIN/mariya JOB#: [id number] / [id number]
== END | disposition home or self-care (01) ==
LOC: PNCL 10:28
PROVIDERS: ATTEND Anesthesiology
DX: M54.16 Radiculopathy, lumbar region (principal); E78.00 Pure hypercholesterolemia, unspecified; I10 Essential (primary) hypertension; K21.9 Gastro-esophageal reflux disease without esophagitis; F41.9 Anxiety disorder, unspecified; F32.9 Major depressive disorder, single episode, unspecified; Z98.890 Other specified postprocedural states; Z72.89 Other problems related to lifestyle; Z90.710 Acquired absence of both cervix and uterus; Z72.0 Tobacco use; Z88.6 Allergy status to analgesic agent; Z88.1 Allergy status to other antibiotic agents; Z99.2 Dependence on renal dialysis
CPT/HCPCS: 62323; J1030; J1040

== ENCOUNTER → 2017-04-02 | Outpatient (CLI) | payer MEDICARE, OTHER ==
[~2017-04-02] MED LIST changes: +BUDE10.2 IH; +BUPR200T2 PO; +CALC300T5 PO; +LITH450T PO; +NAPR-683 PO; -NAPR500T PO; +TIOT18CA IH
--- NOTE | 2017-04-02 22:30 | PAIN ---
DATE OF SERVICE: 04/02/2017 DIAGNOSIS: Lumbar radiculopathy. HISTORY OF PRESENT ILLNESS: The patient is a 46-year-old female who returns for a followup status post lumbar epidural steroid injection as well as medication management with oxycodone. The patient reports she is doing well with each of these. Her last injection was on 01/22/2017. She reports the pain was much better about 70% improved in the low back and right lower extremity, now returning over the past 2-3 weeks. Rates it as a 10 on a scale of 10 at its worst, 10 on average and a 3 at its least and is a 5 today. The patient reports this pain is aching, sharp, tight, shooting, cramping and stabbing, becoming more constant, more severe and becoming more unbearable with weightbearing, standing, walking, changing positions, better with sitting or lying down. The patient reports it awakens her from sleep about every 6 hours, but she usually gets through the night without too much difficulty. If she is lying on her right side, she has to get up, reposition because it will wake her up from sleep. Otherwise, she does fairly well, no new motor or sensory deficits, no new bowel or bladder incontinence or other complaints. The patient reports no side effects with her medication. PHYSICAL EXAMINATION: VITAL SIGNS: Today, the patient's blood pressure is 105/65, pulse 87, respirations 18, temperature is 98.3 degrees Fahrenheit. Height is 5 feet 4-1/2 inches, weight is 186 pounds. GENERAL: The patient is awake, alert, oriented, appropriate, very pleasant demeanor. HEENT: Shows normocephalic, atraumatic. Extraocular movements intact, symmetrical. Oral cavity shows mucous membranes moist and pink. Dentition is intact. NECK: Shows anterior throat supple without palpable lymphadenopathy noted. Swallow reflex is symmetrical. CHEST: Shows normal on inspection. Breath sounds clear to auscultation bilaterally. HEART: Shows S1, S2 clear. No murmurs auscultated. ABDOMEN: Soft, nontender, nondistended. No palpable organomegaly is noted. No rebound or guarding demonstrated. MUSCULOSKELETAL: Back shows spine grossly in the midline. No tenderness with palpation in the upper lumbar distribution, but in the lower lumbar distribution of the paraspinous musculature shows some moderate tenderness with palpation bilaterally, but only diffusely, slightly more on the right than the left. No tenderness over the sacrum or sacroiliac regions. The patient has good rotational motion of the lumbar spine, both laterally greater than 10 degrees right and left as well as extension greater than 10 degrees, forward flexion 45 degrees without difficulty or pain reported. Lower extremities show deep tendon reflexes at 1+ in the patellar and tendo-calcaneus tendons. Motor exam is strong with 5/5 dorsiflexion, extension, quadriceps and hamstring flexion and are symmetrical. Peripheral pulses are 1+, posterior tibia. No peripheral edema is noted in bilateral lower extremity. PLAN: Options were discussed with the patient. The patient's old chart was reviewed as her current medication regimen and updated. Current review of systems updated today as well. We will proceed with a first in the series lumbar epidural steroid injection with fluoroscopic guidance. Risks were again discussed including, but not limited to bleeding, infection, possibility of epidural hematoma, subsequent neurologic compromise, dural puncture headaches, spinal cord and/or nerve damage, side effects of steroid medication and poor results regarding pain control. The patient understands and wished to proceed. The patient will return to clinic in approximately 2 weeks for a followup, was counseled on return appointment, activity level and side effects to be aware of. DIAGNOSIS: Lumbar radiculopathy. PROCEDURES: Lumbar epidural steroid injection, translaminar approach, at L4-L5 level using C-arm fluoroscopic guidance under sterile prep and drape using local anesthetic. MEDICATIONS INJECTED: A total of 120 mg of Depo-Medrol plus 10 mL of preservative-free normal saline and 2 mL of Isovue for contrast. CONDITION AT DISCHARGE: Stable. The patient tolerated procedure well, had no complications. KAELYN CUNNINGHAM MD DR: NITIN/mariya JOB#: [id number] / [id number]
== END ==
LOC: PNCL 10:46
PROVIDERS: ATTEND Anesthesiology
DX: M54.16 Radiculopathy, lumbar region (principal)
CPT/HCPCS: 62323; J1030; J1040

== ENCOUNTER 2017-05-18 16:08 | Emergency (ER) | payer MEDICARE, OTHER | END 2017-05-18 16:38 | disposition home or self-care (01) | LOC: ER 16:38 | DX: S63.501A Unspecified sprain of right wrist, initial encounter (principal); E78.00 Pure hypercholesterolemia, unspecified; I10 Essential (primary) hypertension; Z88.5 Allergy status to narcotic agent; Z88.1 Allergy status to other antibiotic agents; W01.0XXA Fall on same level from slipping, tripping and stumbling without subsequent striking against object, initial encounter; Y93.89 Activity, other specified; Y99.8 Other external cause status; Y92.89 Other specified places as the place of occurrence of the external cause | CPT/HCPCS: 29125; 73110; 99284-25 ==

== ENCOUNTER → 2017-06-02 | Outpatient (CLI) | payer OTHER, MEDICARE ==
[~2017-06-02] MED LIST changes: -ATOR40TA PO; -BACL10TA PO; -BUDE10.2 IH; -BUPR200T2 PO; -CALC300T5 PO; -CETI10TA22 PO; -CLON1TAB PO; -DIAZ5TAB4 PO; -ESOM20CA PO; -FLUT16SP NS; -GABA-585 PO; -GABA600T2 PO; -HYDR12.53 PO; -IBUP-1060 PO; +IOHEXOL 180 MG/ML 10 ML VIAL.; -IOHEXOL 180 MG/ML 10 ML VIAL. ONE; -LEVO40CA PO; -LINA145C PO; -LITH450T PO; -LORA-434 PO; -LURA120T PO; -MELA5TAB PO; -MULT-245 PO; -NAPR-683 PO; -OMEG1CAP6 PO; -OMEP40CA5 PO; -OXYC-327 PO; -OXYC-328 PO; -PANT40TA5 PO; -PARO40TA61 PO; -PNV1TABL71 PO; -PRAZ1CAP2 PO; -QUET100T4 PO; -QUET300T5 PO; -QUET50TA5 PO; -RIZA10TA10 PO; -TEST5GEL TP; -TIOT18CA IH; -TRAZ150T49 PO; -VORT20TA PO; -ZOLP10TA PO; -[UNRECOGNIZED DRUG - OTHER]; +methylPREDNISolone ACETATE 40 MG/ML VIAL.; -methylPREDNISolone ACETATE 40 MG/ML VIAL. ONE; +methylPREDNISolone ACETATE 80 MG/ML VIAL.; -methylPREDNISolone ACETATE 80 MG/ML VIAL. ONE
== END | disposition home or self-care (01) ==
LOC: PNCL 09:52
DX: M54.16 Radiculopathy, lumbar region (principal); E78.00 Pure hypercholesterolemia, unspecified; K21.9 Gastro-esophageal reflux disease without esophagitis; F41.9 Anxiety disorder, unspecified; F32.9 Major depressive disorder, single episode, unspecified; M19.90 Unspecified osteoarthritis, unspecified site; Z72.0 Tobacco use; Z86.69 Personal history of other diseases of the nervous system and sense organs; Z98.890 Other specified postprocedural states; Z90.710 Acquired absence of both cervix and uterus; Z88.6 Allergy status to analgesic agent
CPT/HCPCS: 62323; J1030; J1040; Q9965

== ENCOUNTER → 2017-07-28 | Outpatient (CLI) | payer OTHER | LOC: PNCL 09:41 | DX: M51.16 Intervertebral disc disorders with radiculopathy, lumbar region (principal) | CPT/HCPCS: 62323; J1030; J1040; Q9965 ==

== ENCOUNTER → 2017-09-29 | Outpatient (CLI) | payer OTHER | END | disposition home or self-care (01) | LOC: PNCL 08:57 | DX: M51.16 Intervertebral disc disorders with radiculopathy, lumbar region (principal) | CPT/HCPCS: 99212 ==

== ENCOUNTER → 2017-11-24 | Outpatient (CLI) | payer OTHER ==
[~2017-11-24] MED LIST changes: +LIDOCAINE 2% PF 2ML VIAL.
== END | disposition home or self-care (01) ==
LOC: PNCL 09:20
DX: M51.16 Intervertebral disc disorders with radiculopathy, lumbar region (principal); E78.00 Pure hypercholesterolemia, unspecified; I10 Essential (primary) hypertension; F41.9 Anxiety disorder, unspecified; F32.9 Major depressive disorder, single episode, unspecified; K21.9 Gastro-esophageal reflux disease without esophagitis; Z88.5 Allergy status to narcotic agent; Z88.3 Allergy status to other anti-infective agents; Z98.890 Other specified postprocedural states; Z90.49 Acquired absence of other specified parts of digestive tract; Z90.710 Acquired absence of both cervix and uterus; M19.90 Unspecified osteoarthritis, unspecified site; Z72.89 Other problems related to lifestyle; Z79.899 Other long term (current) drug therapy
CPT/HCPCS: 62323; J1030; J1040; J2001; Q9965

== ENCOUNTER → 2018-01-19 | Outpatient (CLI) | payer OTHER ==
[2017-06-20 11:00] VITALS: BP 95/66
[~2018-01-19] MED LIST changes: +ATOR40TA PO; +AZEL137S3 NS; +BACL10TA PO; +BIOT1CAP3 PO; +BUDE10.2 IH; +BUPR200T2 PO; +CALC300T5 PO; +CETI10TA22 PO; +CLON1TAB PO; +DIAZ5TAB4 PO; +ESOM20CA PO; +ESTR42.53 VG; +FLUT16SP NS; +GABA-585 PO; +GABA600T2 PO; +HYDR12.53 PO; +IBUP-1007 PO; +IBUP-1060 PO; -IOHEXOL 180 MG/ML 10 ML VIAL.; +LEVO40CA PO; -LIDOCAINE 2% PF 2ML VIAL.; +LINA145C PO; +LITH450T PO; +LORA-434 PO; +LURA120T PO; +MELA5TAB PO; +MULT-245 PO; +NALO25TA2 PO; +NAPR-683 PO; +OMEG1CAP6 PO; +OMEP40CA5 PO; +OXYC-327 PO; +OXYC-328 PO; +PANT40TA5 PO; +PARO40TA61 PO; +PNV1TABL71 PO; +PRAZ1CAP2 PO; +QUET100T4 PO; +QUET300T5 PO; +QUET50TA5 PO; +RIZA10TA10 PO; +TEST5GEL TP; +TIOT18CA IH; +TRAZ150T49 PO; +TRIA15CR3 TP; +VORT20TA PO; +ZOLP10TA PO; +[UNRECOGNIZED DRUG - OTHER]; -methylPREDNISolone ACETATE 40 MG/ML VIAL.; -methylPREDNISolone ACETATE 80 MG/ML VIAL.
--- NOTE | 2018-01-19 18:04 | PAIN ---
DATE OF SERVICE: 01/19/2018 DIAGNOSES: Lumbar radiculopathy with lumbar degenerative disk disease. HISTORY OF PRESENT ILLNESS: The patient is a 47-year-old female who returns for followup status post lumbar epidural steroid injection x 1, 11/24/2017. The patient did well, about 60% improvement. The patient reports she is doing well enough that she would like to wait on any further injections. Currently, she has also been managed on oxycodone, Percocet with good results as well and no side effects. The patient reports that she is under a lot of stress recently as her family has in her words turned their back on her as they were providing some assistance with food and money and fpc, and they have turned her away. She reports she is now living in [address] [facility] in [place], [place] and has some food stamps, but has not been eating well and indeed she is decreased by about 30 pounds since her visit in September. The patient reports that her pain is fairly well controlled, however, without significant side effects from her medication and again doing well after last injection. The patient reports the pain is mainly in the low back, aching, sharp, tight, shooting at times, sometimes cramping, stabbing, but fairly manageable. The patient reports it is a 10 on a scale of 10 at its worst, 7 on average, 3 at its least and is a 3 today. The patient reports no new motor or sensory deficits, no new bowel or bladder incontinence or other complaints. PHYSICAL EXAMINATION: VITAL SIGNS: The patient's blood pressure is 134/88, pulse 107, respirations 18, temperature 98.4 degrees Fahrenheit, height is 5 feet 4 inches and weight is 132 pounds. GENERAL: The patient is awake, alert, oriented, appropriate, very pleasant demeanor. HEENT: Head is normocephalic, atraumatic. Extraocular movements intact and symmetrical. Oral cavity: Mucous membranes moist and pink. Dentition is with dentures. NECK: Shows anterior throat supple without palpable lymphadenopathy noted. Swallow reflex symmetrical. CHEST: Shows normal with inspection. Breath sounds clear to auscultation bilaterally. HEART: Shows S1, S2 clear. No murmurs auscultated. ABDOMEN: Soft, nontender, nondistended. BACK: Shows spine grossly in the midline. Lumbar paraspinous muscle shows symmetrical on inspection and on palpation, she has some mild tenderness with palpation, but only diffusely and only in the low lumbar distribution without radiation. No tenderness over the sacrum or sacroiliac regions. The patient has good rotational motion of lumbar spine, both laterally as well as extension and flexion without difficulty. EXTREMITIES: Lower extremities show deep tendon reflexes at 1+ in the patellar and tendo calcaneus tendons. Motor exam is strong with 5/5 dorsiflexion, extension, quadriceps and hamstring flexion and symmetrical. Peripheral pulses are 1+ posterior tibia. No peripheral edema is noted. Options were discussed with the patient. The patient's old chart was reviewed as her current medication regimen updated. Current review of systems updated today as well, and we will hold on further injections at this time, will refill the patient's Percocet for 2-month prescription. The patient has had appropriate [facility] reporting as well as urinalysis to date. We will obtain a urinalysis today as well for routine screening. Also discussed possible social science research assistant to contact the patient regarding transportation issues as well as food stamps and nutritional issues with assistance for both of these. The patient is willing to investigate this and will follow up in approximately 1 month or sooner, if pain returns in the back, as necessary. The patient was given instruction as well as side effects to be aware of with her medications. KAELYN CUNNINGHAM MD DR: NITIN/mariya JOB#: [id number] / [id number]
== END | disposition home or self-care (01) ==
LOC: PNCL 09:40
PROVIDERS: ATTEND Anesthesiology
DX: M51.16 Intervertebral disc disorders with radiculopathy, lumbar region (principal); I10 Essential (primary) hypertension; E11.9 Type 2 diabetes mellitus without complications; E78.5 Hyperlipidemia, unspecified; E78.00 Pure hypercholesterolemia, unspecified; K21.9 Gastro-esophageal reflux disease without esophagitis; E87.6 Hypokalemia; J44.9 Chronic obstructive pulmonary disease, unspecified; Z86.69 Personal history of other diseases of the nervous system and sense organs; Z90.49 Acquired absence of other specified parts of digestive tract; Z90.710 Acquired absence of both cervix and uterus; Z88.1 Allergy status to other antibiotic agents; Z88.3 Allergy status to other anti-infective agents; Z88.5 Allergy status to narcotic agent; Z88.6 Allergy status to analgesic agent; Z88.8 Allergy status to other drugs, medicaments and biological substances; Z79.899 Other long term (current) drug therapy; Z82.49 Family history of ischemic heart disease and other diseases of the circulatory system; Z83.3 Family history of diabetes mellitus
CPT/HCPCS: G0463

== ENCOUNTER 2018-12-19 12:28 | Emergency (ER) | payer OTHER, MEDICAID ==
[~2018-12-19] VITALS: Ht 165.1 cm; Wt 67.1 kg
[~2018-12-19 12:28] MED LIST changes: -GABA600T2 PO; +GABA600T7 PO; -HYDR12.53 PO; +HYDR12.575 PO; -LINA145C PO; +LINZESS145 MCG PO; -OXYC-327 PO; -OXYC-328 PO; +OXYC1TAB19 PO; +OXYC1TAB22 PO; -PANT40TA5 PO; +PANT40TA77 PO
[2018-12-19 12:40] VITALS: BP 111/67
[2018-12-19] MEDS ORDERED: traMADol 50 MG TABLET PO ONE (13:00)
--- NOTE | 2018-12-19 13:00 | PHYS DOC ---
Past Medical History Past Medical History: Bronchitis, High Cholesterol, Hypertension, Pneumonia, Other Additional Past Medical Histor: drug abuse Past Surgical History: Appendectomy, Hysterectomy, Tonsillectomy Additional Past Surgical Histo: R wrist, Alcohol Use: None Drug Use: None, Other Adult General Chief Complaint Chief Complaint: MECHANICAL FALL HPI HPI Patient is a 48 year old [female] who presents with [bilateral knee, left wrist pain after fall yesterday. Patient reports she had been walking when she had fallen landing on her knees, and catching herself with her left hand. Denies any loss of consciousness, denies hitting head, denies feeling dizzy, states she just tripped. States she had tries moving ibuprofen 400mg 2 hours prior to coming, continue to have some discomfort. States she has been ambulatory, but he did have some discomfort when ambulating] Review of Systems Review of Systems Constitutional: Denies fever or chills [] Eyes: Denies change in visual acuity, redness, or eye pain [] HENT: Denies nasal congestion or sore throat [] Respiratory: Denies cough or shortness of breath [] Cardiovascular: No additional information not addressed in HPI [] GI: Denies abdominal pain, nausea, vomiting, bloody stools or diarrhea [] : Denies dysuria or hematuria [] Musculoskeletal: Denies back pain reports pain to left wrist, bilateral knees.[] Integument: Denies rash or skin lesions reports abrasions bilateral knees [] Neurologic: Denies headache, focal weakness or sensory changes [] Endocrine: Denies polyuria or polydipsia [] All other systems were reviewed and found to be within normal limits, except as documented in this note. Current Medications Current Medications Current Medications Medications (Trade) Dose Ordered Sig/[facility] Start Time Stop Time Status Last Admin Dose Admin Tramadol HCl (Ultram) 50 mg 1X ONCE 12/19/18 13:00 12/19/18 13:01 DC 12/19/18 13:03 50 MG Allergies Allergies Allergies Coded Allergies Type Severity Reaction Last Updated Verified codeine Allergy Intermediate Hives 11/09/14 Yes doxycycline Allergy Intermediate Hives 11/09/14 Yes Physical Exam Physical Exam Constitutional: Well developed, well nourished, no acute distress, non-toxic appearance. [] HENT: Normocephalic, atraumatic, bilateral external ears normal, oropharynx moist, no oral exudates, nose normal. [] Eyes: PERRLA, EOMI, conjunctiva normal, no discharge. [] Neck: Normal range of motion, no tenderness, supple, no stridor. [] Cardiovascular:Heart rate regular rhythm, no murmur [] Lungs & Thorax: Bilateral breath sounds clear to auscultation [] Abdomen: Bowel sounds normal, soft, no tenderness, no masses, no pulsatile masses. [] Skin: Warm, dry, no erythema, no rash. Abrasions noted to bilateral knees, vers us noted to right tibia, no active bleeding noted at this time. [] Back: No tenderness, no CVA tenderness. [] Extremities: No tenderness, no cyanosis, no clubbing, ROM intact, no edema. Tenderness over left wrist, ulnar distal. Tenderness noted to bilateral knees near Jeffery, range of motion active and passive bilaterally. No obvious deformity noted] Neurologic: Alert and oriented X 3, normal motor function, normal sensory function, no focal deficits noted. [] Psychologic: Affect normal, judgement normal, mood normal. [] Current Patient Data Vital Signs Vital Signs Date Time Temp Pulse Resp B/P (MAP) Pulse Ox O2 Delivery O2 Flow Rate FiO2 12/19/18 13:03 16 97 Room Air 12/19/18 12:40 97.9 79 111/67 (82) 97.9 EKG EKG [] Radiology/Procedures Radiology/Procedures 3 view right knee No evidence of acute fracture. No aggressive bone destruction. Joint spaces appear intact. No significant soft tissue abnormality. IMPRESSION: No acute fracture or dislocation. 3 view left knee Joint spaces are intact. No evidence of acute fracture or dislocation. Joint spaces are intact. No significant soft tissue abnormality. IMPRESSION: No acute fracture or dislocation. Electronically signed by: Lokesh Prieto MD (12/19/2018 2:42 PM) [facility][] Course & Med Decision Making Course & Med Decision Making Pertinent Labs and Imaging studies reviewed. (See chart for details) [] Dragon Disclaimer Dragon Disclaimer This electronic medical record was generated, in whole or in part, using a voice recognition dictation system. Departure Departure Impression: Primary Impression: Knee pain Additional Impressions: Wrist pain Fall Disposition: 01 HOME, SELF-CARE Condition: GOOD Referrals: DAVID NOEL (PCP) Patient Instructions: Knee Pain, [id number] Additional Instructions: Continue to take tylenol / ibuprofen for pain. Continue to put ice on your knees and wrist Follow up with your primary care provider Problem Qualifiers Primary Impression: Knee pain Chronicity: acute Laterality: bilateral Qualified Codes: M25.561 - Pain in right knee; M25.562 - Pain in left knee Additional Impressions: Wrist pain Laterality: left Qualified Codes: M25.532 - Pain in left wrist Fall Encounter type: initial encounter Qualified Codes: W19.XXXA - Unspecified fall, initial encounter JENNIFER TALAVERA APRN Dec 19, 2018 13:00
--- NOTE | 2018-12-19 14:45 | RAD ---
KNEE BILAT 4V History: Pain after a fall last night.. 3 view right knee No evidence of acute fracture. No aggressive bone destruction. Joint spaces appear intact. No significant soft tissue abnormality. IMPRESSION: No acute fracture or dislocation. 3 view left knee Joint spaces are intact. No evidence of acute fracture or dislocation. Joint spaces are intact. No significant soft tissue abnormality. IMPRESSION: No acute fracture or dislocation. Electronically signed by: Lokesh Prieto MD (12/19/2018 2:42 PM) [facility]
--- NOTE | 2018-12-19 14:52 | RAD ---
WRIST 3V LEFT History: Pain after a fall yesterday. No evidence of an acute fracture. Joint spaces and alignment are intact. Soft tissue planes appear preserved. IMPRESSION: No evidence of acute fracture or dislocation. Electronically signed by: Lokesh Prieto MD (12/19/2018 2:49 PM) [facility]
== END 2018-12-19 15:20 | disposition home or self-care (01) ==
LOC: ER 12:28
DX: M25.532 Pain in left wrist (principal); M25.561 Pain in right knee; M25.562 Pain in left knee; G89.11 Acute pain due to trauma; E78.00 Pure hypercholesterolemia, unspecified; I10 Essential (primary) hypertension; Z90.89 Acquired absence of other organs; Z90.710 Acquired absence of both cervix and uterus; Z98.890 Other specified postprocedural states; Z88.1 Allergy status to other antibiotic agents; Z88.5 Allergy status to narcotic agent; W18.39XA Other fall on same level, initial encounter; Y93.01 Activity, walking, marching and hiking; Y92.89 Other specified places as the place of occurrence of the external cause; Y99.8 Other external cause status
CPT/HCPCS: 73110; 73564; 99284

== ENCOUNTER 2019-06-04 12:35 | Emergency (ER) | payer OTHER, MEDICAID ==
[~2019-06-04] VITALS: Ht 162.6 cm; Wt 77.2 kg
[~2019-06-04 12:35] MED LIST changes: -CETI10TA22 PO; +CETI10TA24 PO; +OMEP40CA45 PO; -OMEP40CA5 PO; -RIZA10TA10 PO; +RIZA10TA91 PO
[2019-06-04] MEDS ORDERED: IV NORMAL SALINE 1000ML BAG 1,000 ML IV ONE (13:00)
[2019-06-04 13:22] LABS: BASO % 1 % (0-3); EOS # 0.2 x10^3/uL (0.0-0.7); EOS % 4 % (0-3); HEMATOCRIT 41.7 % (36.0-47.0); HEMOGLOBIN 13.6 g/dL (12.0-15.5); LYMPH # 1.8 x10^3/uL (1.0-4.8); LYMPH % 28 % (24-48); MEAN CORPUSCULAR HEMOGLOBIN 31 pg (25-35); MEAN CORPUSCULAR HGB CONC 33 g/dL (31-37); MEAN CORPUSCULAR VOLUME 96 fL (79-100); MONO # 0.5 x10^3/uL (0.0-1.1); MONO % 7 % (0-9); NEUT # 4.1 x10^3/uL (1.8-7.7); NEUT % 62 % (31-73); PLATELET COUNT 178 x10^3/uL (140-400); RED BLOOD COUNT 4.34 x10^6/uL (3.50-5.40); RED CELL DISTRIBUTION WIDTH 14.1 % (11.5-14.5); WHITE BLOOD COUNT 6.6 x10^3/uL (4.0-11.0)
[2019-06-04 13:37] LABS: CALCIUM 9.8 mg/dL (8.5-10.1); CREATININE 1.3 mg/dL (0.6-1.0); GFR 44.1; POTASSIUM 4.5 mmol/L (3.5-5.1)
[2019-06-04 13:45] LABS: ALBUMIN 3.6 g/dL (3.4-5.0); ALBUMIN/GLOBULIN RATIO 1.2 (1.0-1.7); TOTAL BILIRUBIN 0.3 mg/dL (0.2-1.0); TOTAL PROTEIN 6.7 g/dL (6.4-8.2)
--- NOTE | 2019-06-04 13:54 | PHYS DOC ---
Past Medical History Past Medical History: Bronchitis, High Cholesterol, Hypertension, Pneumonia, Seizure, Other Additional Past Medical Histor: drug abuse Past Surgical History: Appendectomy, Hysterectomy, Tonsillectomy Additional Past Surgical Histo: R wrist, Smoking Status: Current Every Day Smoker Alcohol Use: None Drug Use: None, Other Adult General Chief Complaint Chief Complaint: SEIZURE HPI HPI Patient is a 48 year old with history of hypertension, dyslipidemia, bipolar disorder on lithium, bronchitis, drug use, questionable seizure who presents via EMS complaining of seizure. Patient state she usually gets seizure when she had high [place] level and the last seizure was 3-4 years ago and denies taking seizure medication. Patient states she had it was weakness by her roommate with loss of consciousness without urine and bowel incontinence. Patient relates as stated decision was jerking movement with loss of consciousness for about 5 minutes and fall. EMS reported patient did not have postictal condition. Patient is alert and oriented to ER and denies any problem. Patient admitted to use marijuana. Review of Systems Review of Systems Constitutional: Denies fever or chills [] Eyes: Denies change in visual acuity, redness, or eye pain [] HENT: Denies nasal congestion or sore throat [] Respiratory: Denies cough or shortness of breath [] Cardiovascular: No additional information not addressed in HPI [] GI: Denies abdominal pain, nausea, vomiting, bloody stools or diarrhea [] : Denies dysuria or hematuria [] Musculoskeletal: Denies back pain or joint pain [] Integument: Denies rash or skin lesions [] Neurologic: Denies headache, focal weakness or sensory changes [] Endocrine: Denies polyuria or polydipsia [] All other systems were reviewed and found to be within normal limits, except as documented in this note. Current Medications Current Medications Current Medications Medications (Trade) Dose Ordered Sig/[facility] Start Time Stop Time Status Last Admin Dose Admin Sodium Chloride 1,000 ml @ 1,000 mls/hr 1X ONCE 06/04/19 13:00 06/04/19 13:59 DC 06/04/19 13:41 1,000 MLS/HR Allergies Allergies Allergies Coded Allergies Type Severity Reaction Last Updated Verified codeine Allergy Intermediate Hives 11/09/14 Yes doxycycline Allergy Intermediate Hives 11/09/14 Yes Physical Exam Physical Exam Constitutional: Well nourished, no acute distress, non-toxic appearance. [] HENT: Normocephalic, atraumatic, bilateral external ears normal, oropharynx moist, no oral exudates, nose normal. [] Eyes: PERRLA, EOMI, conjunctiva normal, no discharge. [] Neck: Normal range of motion, no tenderness, supple, no stridor. [] Cardiovascular:Heart rate regular rhythm, no murmur [] Lungs & Thorax: Bilateral breath sounds clear to auscultation [] Abdomen: Bowel sounds normal, soft, no tenderness, no masses, no pulsatile masses. [] Skin: Warm, dry, no erythema, no rash. [] Back: No tenderness, no CVA tenderness. [] Extremities: No tenderness, no cyanosis, no clubbing, ROM intact, no edema. [] Neurologic: Alert and oriented X 3, normal motor function, normal sensory function, no focal deficits noted. [] Psychologic: Affect anxious, judgement normal, mood normal. [] Current Patient Data Vital Signs Vital Signs Date Time Temp Pulse Resp B/P (MAP) Pulse Ox O2 Delivery O2 Flow Rate FiO2 06/04/19 14:47 76 17 97 06/04/19 12:42 98.4 126/80 (95) Room Air 98.4 Lab Values Laboratory Tests Test 06/04/19 12:30 06/04/19 14:27 06/04/19 15:35 White Blood Count 6.6 x10^3/uL (4.0-11.0) Red Blood Count 4.34 x10^6/uL (3.50-5.40) Hemoglobin 13.6 g/dL (12.0-15.5) Hematocrit 41.7 % (36.0-47.0) Mean Corpuscular Volume 96 fL (79-100) Mean Corpuscular Hemoglobin 31 pg (25-35) Mean Corpuscular Hemoglobin Concent 33 g/dL (31-37) Red Cell Distribution Width 14.1 % (11.5-14.5) Platelet Count 178 x10^3/uL (140-400) Neutrophils (%) (Auto) 62 % (31-73) Lymphocytes (%) (Auto) 28 % (24-48) Monocytes (%) (Auto) 7 % (0-9) Eosinophils (%) (Auto) 4 % (0-3) H Basophils (%) (Auto) 1 % (0-3) Neutrophils # (Auto) 4.1 x10^3/uL (1.8-7.7) Lymphocytes # (Auto) 1.8 x10^3/uL (1.0-4.8) Monocytes # (Auto) 0.5 x10^3/uL (0.0-1.1) Eosinophils # (Auto) 0.2 x10^3/uL (0.0-0.7) Basophils # (Auto) 0.0 x10^3/uL (0.0-0.2) Sodium Level 141 mmol/L (136-145) Potassium Level 4.5 mmol/L (3.5-5.1) Chloride Level 107 mmol/L (98-107) Carbon Dioxide Level 27 mmol/L (21-32) Anion Gap 7 (6-14) Blood Urea Nitrogen 21 mg/dL (7-20) H Creatinine 1.3 mg/dL (0.6-1.0) H Estimated GFR (Cockcroft-Gault) 44.1 BUN/Creatinine Ratio 16 (6-20) Glucose Level 80 mg/dL (70-99) Calcium Level 9.8 mg/dL (8.5-10.1) Total Bilirubin 0.3 mg/dL (0.2-1.0) Aspartate Amino Transferase (AST) 15 U/L (15-37) Alanine Aminotransferase (ALT) 17 U/L (14-59) Alkaline Phosphatase 66 U/L (46-116) Total Protein 6.7 g/dL (6.4-8.2) Albumin 3.6 g/dL (3.4-5.0) Albumin/Globulin Ratio 1.2 (1.0-1.7) [place] Level 0.7 mmol/L (0.6-1.2) [place] Last Dose Date 06/03/19 [place] Last Dose Time 2100 Lactic Acid Level 0.3 mmol/L (0.4-2.0) L Urine Opiates Screen Neg (NEG) Urine Methadone Screen Neg (NEG) Urine Barbiturates Neg (NEG) Urine Phencyclidine Screen Neg (NEG) Urine Amphetamine/Methamphetamine Neg (NEG) Urine Benzodiazepines Screen Neg (NEG) Urine Cocaine Screen Neg (NEG) Urine Cannabinoids Screen Pos (NEG) Urine Ethyl Alcohol Neg (NEG) Laboratory Tests 06/04/19 12:30 Laboratory Tests 06/04/19 12:30 EKG EKG EKG interpreted by me. EKG at 1249 showed normal sinus rhythm at rate of 76, normal QT interval, prolonged DC, poor R-wave progress in anteroseptal leads, no acute ST-T wave elevation. Radiology/Procedures Radiology/Procedures [facility] [address] [place] [address] IMAGING REPORT Signed PATIENT: MICHAEL VERA AACCOUNT: [id number] : 1970 LOCATION: ER AGE: 48 SEX: F EXAM STATUS: REG ER ORD. PHYSICIAN: BRANDI CHINCHILLA MD REASON: seizure and fall PROCEDURE: CT HEAD WO CONTRAST CT HEAD WO CONTRAST Clinical indications: Fall and seizure. COMPARISON: June 17, 2017. Technique: Noncontrast axial cross sectional scanning of the head was performed. PQRS compliance Statement One or more of the following individualized dose reduction techniques were utilized for this study: 1. Automated exposure control 2. Adjustment of the mA and/or kV according to patient size 3. Use of iterative reconstruction technique Findings: No acute intracranial hemorrhage or midline shift or mass-effect or hydrocephalus or extra-axial fluid collection is seen. No focal hypodense area or sulci effacement is seen to indicate an acute infarct or edema radiographically. No skull fracture or pneumocephalus is seen. No opacification of the mastoid sinuses or the middle ear cavities or the paranasal sinuses is seen. The maxillary sinuses are not completely seen in this study. Impression: No acute intracranial abnormality is seen. Electronically signed by: Emily Mckenna MD (06/04/2019 4:20 PM) [id number] DICTATED and SIGNED BY: EMILY MCKENNA MD DATE: 06/04/19 162 Course & Med Decision Making Course & Med Decision Making Pertinent Labs and Imaging studies reviewed. (See chart for details) Evaluation of patient in ER. 48-year-old female patient brought in by EMS because of possible seizure elevation of level of [place]. Patient had normal lactic acid and physical exam.Ed[place] level was 0.7 that was in normal range of therapeutic range. Patient was advised to follow up with her primary care physician and psychiatric and avoid of using marijuana and quit smoking cigarettes. I've spoken with the patient and/or caregivers. I've explained the patient's condition, diagnosis and treatment plan based on information available to me at this time. I've answered the patient's and/or caregivers questions and addressed any concerns. The patient and/or caregivers have a good understanding the patient's diagnosis, condition and treatment plan as can be expected at this point. Vital signs have been stabilized. The patient's condition is stable for discharge from the emergency department. The patient will pursue further outpatient evaluation with her primary care provider or other designated consulting physician as outlined in the discharge instructions. Patient and/or caregivers are agreeable to this plan of care and follow-up instructions have been explained in detail. The patient and/or caregivers have received these instructions in written format and expressed understanding of these discharge instructions. The patient and her caregivers are aware that if any significant change in condition or worsening of symptoms should prompt him to immediately return to this of the closest emergency department. If an emergent department is not readily available I would encourage him to call 911. Dragon Disclaimer Dragon Disclaimer This electronic medical record was generated, in whole or in part, using a voice recognition dictation system. Departure Departure Impression: Primary Impression: Seizure-like activity Additional Impression: Marijuana abuse Disposition: 01 HOME, SELF-CARE (at 1637) Condition: STABLE Referrals: DAVID NOEL (PCP) Patient Instructions: Nonepileptic Seizures Additional Instructions: Drink plenty of liquids Follow-up with your primary care physician in 3-5 days Return to ER if not getting better Continue current medication Thank you for visiting [facility]. We appreciate you trusting us with your care. If any additional problems come up don't hesitate to return to visit us. Please follow up with your primary care provider so they can plan additional care if needed and know about the problem that you had. If symptoms worsen come back to the Emergency Department. Any concerning symptoms that start such as chest pain, shortness of air, weakness or numbness on one side of the body, running high fevers or any other concerning symptoms return to the ER. Problem Qualifiers BRANDI CHICNHILLA MD Jun 04, 2019 13:54
--- NOTE | 2019-06-04 13:57 | EKG ---
[facility] [address] [place] [address] Test Date: 2019-06-04 Test Time: 12:49:05 Pat Name: MICHAEL VERA Department: Room: Gender: F Agronomy Specialist: : 1970 Requested By: BRANDI CHINCHILLA Order Number: [id number] Reading MD: Measurements Intervals [place] Rate: 76 P: -21 OR: 212 QRS: 22 QRSD: 98 T: 44 QT: 366 QTc: 416 Interpretive Statements SINUS RHYTHM QRS(T) CONTOUR ABNORMALITY CONSISTENT WITH INFERIOR INFARCT PROBABLY OLD ABNORMAL ECG RI6.01 No previous ECG available for comparison
[2019-06-04 15:39] LABS: LI 0.7 mmol/L (0.6-1.2)
[2019-06-04 15:47] VITALS: BP 99/72
[2019-06-04 15:57] LABS: BARBITURATES NEG (NEG); BENZODIAZEPINES NEG (NEG); CANNABINOIDS POS (NEG); COCAINE NEG (NEG); METHADONE NEG (NEG); OPIATES NEG (NEG); PHENCYCLIDINE NEG (NEG)
[2019-06-04 16:03] LABS: AMPHETAMINE/METHAMPHETAMINE NEG (NEG)
--- NOTE | 2019-06-04 16:23 | RAD ---
CT HEAD WO CONTRAST Clinical indications: Fall and seizure. COMPARISON: June 17, 2017. Technique: Noncontrast axial cross sectional scanning of the head was performed. PQRS compliance Statement One or more of the following individualized dose reduction techniques were utilized for this study: 1. Automated exposure control 2. Adjustment of the mA and/or kV according to patient size 3. Use of iterative reconstruction technique Findings: No acute intracranial hemorrhage or midline shift or mass-effect or hydrocephalus or extra-axial fluid collection is seen. No focal hypodense area or sulci effacement is seen to indicate an acute infarct or edema radiographically. No skull fracture or pneumocephalus is seen. No opacification of the mastoid sinuses or the middle ear cavities or the paranasal sinuses is seen. The maxillary sinuses are not completely seen in this study. Impression: No acute intracranial abnormality is seen. Electronically signed by: Srinivas Mckenna MD (06/04/2019 4:20 PM) [id number]
== END 2019-06-04 16:57 | disposition home or self-care (01) ==
LOC: ER 12:35
DX: R56.9 Unspecified convulsions (principal); F12.10 Cannabis abuse, uncomplicated; E78.00 Pure hypercholesterolemia, unspecified; I10 Essential (primary) hypertension; F17.200 Nicotine dependence, unspecified, uncomplicated; Z90.89 Acquired absence of other organs; Z90.49 Acquired absence of other specified parts of digestive tract; Z88.1 Allergy status to other antibiotic agents; Z88.5 Allergy status to narcotic agent
CPT/HCPCS: 36415; 70450; 80053; 80178; 80307; 83605; 85025; 93005; 99285; J7030

== ENCOUNTER → 2019-08-11 | Day surgery (SDC) | payer OTHER, MEDICAID ==
[~2019-08-11] MED LIST changes: +BENZ200C47 PO; +CARI3CAP PO; +DICL75TA PO; +ESOM40CA PO; +IV RINGERS,LACTATED 1000ML 1,000 ML IV SCH; +LEVO50TA5 PO; +LIDOCAINE 1% PF 2 ML VIAL. ID PRN; +LIDOCAINE 2% PF 5 ML VIAL. ONE; +LITH150C PO; +LUBI8CAP4 PO; +ONDANSETRON PF 4 MG/2 ML VIAL. IVP PRN; +PROCHLORPERAZINE 10 MG/2 ML VIAL. IVP PRN; +PROPOFOL 20 ML IV ONE; +fentaNYL PF VIAL 100 MCG/2 ML VIAL IVP PRN
[2019-08-11 09:13] VITALS: BP 117/75
--- NOTE | 2019-08-13 10:06 | PATHOLOGY ---
[facility] Accession Number: [id number] . 01 Material submitted: . esophagus - DISTAL ESOPHAGUS REFLUX. Modifiers: distal . 01 Clinical history: . Dysphagia rule out Abbott's . 02 Diagnosis: Esophagus "distal", endoscopic biopsy: - Esophageal squamous and gastric cardia mucosa with features of reflux esophagitis and focal intestinal metaplasia (Abbott's esophagus). - Negative for dysplasia and malignancy. (LENNOXK:allyson; 08/12/2019) MBR 08/13/2019 0952 Local . 02 Electronically signed: . Carley Islas MD, Pathologist NPI- [id number] . 01 Gross description: . The specimen is received in formalin, labeled "Brittany Hernandez, distal esophagus reflux" and consists of a few translucent fragments of pink-fan tissue measuring 1.0 x 0.5 x 0.2 cm in aggregate which are entirely submitted in A1. (SDY; 08/11/2019) SYU/SYU 08/11/2019 1626 Local . 02 Pathologist provided ICD-10: R13.10 . 02 CPT . 920077 Specimen Comment: A courtesy copy of this report has been sent to [phone], [phone] Specimen Comment: [id number] Specimen Comment: Report sent to / DR RODRIGUEZ Performed at: 01 [facility] [address] [id number] MD Chaz Watson MD Phone: [phone] Performed at: 02 [facility] [address] [id number] MD Demetrius Mcguire MD Phone: [phone]
== END ==
LOC: ENDOS 07:11
PROVIDERS: ATTEND Internal Medicine Gastroenterology
DX: R13.10 Dysphagia, unspecified (principal); K21.0 Gastro-esophageal reflux disease with esophagitis; I10 Essential (primary) hypertension; F41.9 Anxiety disorder, unspecified; F32.9 Major depressive disorder, single episode, unspecified; E78.00 Pure hypercholesterolemia, unspecified; K22.70 Barrett's esophagus without dysplasia; F15.90 Other stimulant use, unspecified, uncomplicated; F17.210 Nicotine dependence, cigarettes, uncomplicated; Z72.89 Other problems related to lifestyle; Z90.710 Acquired absence of both cervix and uterus; Z88.6 Allergy status to analgesic agent; Z88.5 Allergy status to narcotic agent; Z98.890 Other specified postprocedural states
CPT/HCPCS: 43239; 43450; J2704; J3490

== ENCOUNTER → 2019-10-14 | Outpatient (CLI) | payer OTHER, MEDICAID ==
[2019-08-11 09:13] VITALS: BP 117/75
[~2019-10-14] MED LIST changes: -IV RINGERS,LACTATED 1000ML 1,000 ML IV SCH; -LIDOCAINE 1% PF 2 ML VIAL. ID PRN; -LIDOCAINE 2% PF 5 ML VIAL. ONE; -ONDANSETRON PF 4 MG/2 ML VIAL. IVP PRN; -PROCHLORPERAZINE 10 MG/2 ML VIAL. IVP PRN; -PROPOFOL 20 ML IV ONE; -fentaNYL PF VIAL 100 MCG/2 ML VIAL IVP PRN
== END | disposition home or self-care (01) ==
LOC: LAB 14:38
PROVIDERS: ATTEND Orthopaedic Surgery
DX: Z11.59 Encounter for screening for other viral diseases (principal)
CPT/HCPCS: U0003-CS

== ENCOUNTER 2019-10-19 07:05 | Day surgery (SDC) | payer OTHER, MEDICAID ==
[~2019-10-19] VITALS: Ht 162.6 cm; Wt 83.0 kg
[~2019-10-19 07:05] MED LIST changes: +CALC-161 PO; +DEXL60CA2 PO; +IV RINGERS,LACTATED 1000ML 1,000 ML IV SCH; +METH500T7 PO; +ONDANSETRON PF 4 MG/2 ML VIAL. IV PRN; +PROCHLORPERAZINE 10 MG/2 ML VIAL. IV PRN; +SUMA100T3 PO; +fentaNYL PF VIAL 100 MCG/2 ML VIAL IV PRN
[2019-10-19] MEDS ORDERED: LIDOCAINE 2% PF 5 ML VIAL. ONE (08:22)
[2019-10-19] MEDS ORDERED: fentaNYL PF VIAL 100 MCG/2 ML VIAL ONE (08:22)
[2019-10-19] MEDS ORDERED: PROPOFOL 10 MG/ML (20ML) VIAL. IV ONE (08:22)
[2019-10-19] MEDS ORDERED: BUPIVACAINE MPF 0.25% 30 ML VIAL. ONE (08:29)
[2019-10-19] MEDS ORDERED: HYDR-3165 PO (08:46)
--- NOTE | 2019-10-19 08:48 | DISCH ---
DISCHARGE INSTRUCTIONS Condition on Discharge Condition on Discharge: Stable Activity After Discharge Activity Instructions for Disc: Other, see below (Fine motor use allowed with right hand, no hard grasping or heavy lifting, may do gentle grasp with stress ball using silverware etc.) Lifting Instructions after Dis: No heavy lifting Diet after Discharge Diet after Discharge: Regular Wound Incision Care Wound/Incision Care: Ice to area for comfort, Keep wound elevated, Do not change dressing (Keep dressing clean and dry), No wound care needed Contacting the [facility]Rivera after DC Call your doctor for: Concerns you may have Follow-Up Follow up with: Dr. Rolon 10 days Treatment/Equipment after DC Adaptive Equipment Issued: None SALONI ROLON MD Oct 19, 2019 08:48
--- NOTE | 2019-10-19 09:29 | PDOC4 ---
Operative Note Operative Note Date of surgery: 10/19/2019 Preoperative diagnosis: Right carpal tunnel syndrome Postoperative diagnosis: Same with moderate compression of the median nerve Operative procedure: Right carpal tunnel release Surgeon: Ольга Hogshead Builder: Dianelys thakkra Anesthesia: General LMA Estimated blood loss: 2 cc Complications: None Operative indications: Brittany is a 49-year-old female with ongoing and worsening paresthesias in the median nerve distribution with EMG testing verifying the clinical suspicion of carpal tunnel syndrome. I had gone over with her operative and nonoperative treatment options including the possibility of carpal tunnel release and the fact that she may not get complete relief depending on how the body responds there is also a possibility of nerve or blood vessel damage infection medical other anesthetic complications among others and recovery may be incomplete and take a longer time. Because of the body's response. All her questions were answered she wishes to proceed with surgical evaluation and treatment Operative text: Patient was identified procedure verified patient placed in the supine position on the operating table. After adequate amounts of general anesthesia were administered the right upper extremity was prepped and draped in standard sterile fashion and after timeout was performed right upper extremity was exsanguinated by Esmarch bandage tourniquet inflated to 250 mmHg. A longitudinal incision was made along Lazarus's lines just distal to the distal wrist crease dissection carried out down to the transverse carpal ligament which was divided longitudinally under direct visualization and verified to be released completely proximally and distally both visibly and palpably. The median nerve was noted to have moderate compression and flexor tendons were intact without evidence of synovitis or other pathology. Incisional area was infused with half percent plain Marcaine and closure accomplished with 3-0 nylon in a vertical mattress fashion sterile soft dressings were applied fingers were noted to be warm pink following deflation of the tourniquet and patient was returned to recovery room in stable condition having tolerated procedure well. Dianelys thakkar was present for the procedure assisted in the prepping draping retraction closure and dressings SALONI FIELDS MD Oct 19, 2019 09:29
[2019-10-19] MEDS ORDERED: HYDROcodone/APAP 7.5/325MG 1 TAB TABLET PO PRN (09:30)
[2019-10-19 10:10] VITALS: BP 128/84
== END 2019-10-19 10:50 | disposition home or self-care (01) ==
LOC: SURG 07:05
PROVIDERS: ATTEND Orthopaedic Surgery
DX: G56.01 Carpal tunnel syndrome, right upper limb (principal); G43.909 Migraine, unspecified, not intractable, without status migrainosus; I10 Essential (primary) hypertension; E78.00 Pure hypercholesterolemia, unspecified; J44.9 Chronic obstructive pulmonary disease, unspecified; K21.9 Gastro-esophageal reflux disease without esophagitis; E03.9 Hypothyroidism, unspecified; F31.9 Bipolar disorder, unspecified; E66.9 Obesity, unspecified; Z68.31 Body mass index [BMI] 31.0-31.9, adult; Z87.891 Personal history of nicotine dependence; Z98.42 Cataract extraction status, left eye; Z98.41 Cataract extraction status, right eye; Z90.710 Acquired absence of both cervix and uterus; Z96.1 Presence of intraocular lens
CPT/HCPCS: 64721; A7015; J0696; J2704; J3010; J3490

== ENCOUNTER → 2020-01-10 | Outpatient (CLI) | payer OTHER, MEDICAID ==
[~2020-01-10] MED LIST changes: -CETI10TA24 PO; +CETI10TA74 PO; +HYDR-3165 PO; -IV RINGERS,LACTATED 1000ML 1,000 ML IV SCH; -ONDANSETRON PF 4 MG/2 ML VIAL. IV PRN; +OXYC-325 PO; -PROCHLORPERAZINE 10 MG/2 ML VIAL. IV PRN; -fentaNYL PF VIAL 100 MCG/2 ML VIAL IV PRN
== END | disposition home or self-care (01) ==
LOC: LAB 14:40
PROVIDERS: ATTEND Orthopaedic Surgery
DX: Z01.812 Encounter for preprocedural laboratory examination (principal); Z20.828 Contact with and (suspected) exposure to other viral communicable diseases; G56.02 Carpal tunnel syndrome, left upper limb; Z88.1 Allergy status to other antibiotic agents; Z88.5 Allergy status to narcotic agent
CPT/HCPCS: U0003-CS

== ENCOUNTER 2020-01-14 09:01 | Day surgery (SDC) | payer OTHER, MEDICAID ==
[~2020-01-14 09:01] MED LIST changes: +IV RINGERS,LACTATED 1000ML 1,000 ML IV SCH; +LIDOCAINE 1% PF 2 ML VIAL. ID PRN; +ONDANSETRON PF 4 MG/2 ML VIAL. IV PRN; -OXYC-325 PO; +PROCHLORPERAZINE 10 MG/2 ML VIAL. IV PRN; +ceFAZolin SODIUM IV Push 1 GM VIAL. IVP PRN; +fentaNYL PF VIAL 100 MCG/2 ML VIAL IV PRN
[2020-01-14] MEDS ORDERED: BUPIVACAINE-EPI 0.5%-1:200000 MPF 30 ML VIAL. ONE (09:22)
[2020-01-14] MEDS ORDERED: PROPOFOL 10 MG/ML (20ML) VIAL. IV ONE (09:30)
[2020-01-14] MEDS ORDERED: MIDAZOLAM HCL/PF 2 MG/2 ML VIAL. ONE (09:30)
[2020-01-14] MEDS ORDERED: LIDOCAINE 2% PF 5 ML VIAL. ONE (09:30)
[2020-01-14] MEDS ORDERED: fentaNYL PF VIAL 100 MCG/2 ML VIAL ONE (09:30)
[2020-01-14] MEDS ORDERED: PHENYLEPHRINE in 0.9% NACL PF 1 MG/10 ML SYRINGE. IV ONE (09:53)
[2020-01-14] MEDS ORDERED: ONDANSETRON PF 4 MG/2 ML VIAL. ONE (10:00)
[2020-01-14] MEDS ORDERED: DEXAMETHASONE SOD PHOS 4 MG/ML VIAL ONE (10:00)
[2020-01-14] MEDS ORDERED: OXYC-325 PO (10:24)
[2020-01-14] MEDS ORDERED: SEVOFLURANE 31 TO 60 MINUTES. IH ONE (10:25)
--- NOTE | 2020-01-14 10:26 | DISCH ---
DISCHARGE INSTRUCTIONS Condition on Discharge Condition on Discharge: Stable Activity After Discharge Activity Instructions for Disc: Other, see below (May eat write type and do fine motor use, no hard grasping or heavy lifting) Lifting Instructions after Dis: No heavy lifting Diet after Discharge Diet after Discharge: Regular Wound Incision Care Wound/Incision Care: Ice to area for comfort, Keep wound elevated, Do not change dressing (Keep dressing clean and dry and do not remove unless soiled), No wound care needed Contacting the [facility]ivera after DC Call your doctor for: Concerns you may have Follow-Up Follow up with: Dr. Rolon 10 days Treatment/Equipment after DC Adaptive Equipment Issued: None SALONI ROLON MD Jan 14, 2020 10:26
[2020-01-14] MEDS ORDERED: oxyCODONE/APAP 5/325 1 TAB TABLET PO ONE (10:45)
[2020-01-14 11:00] VITALS: BP 104/67
--- NOTE | 2020-01-14 13:02 | PDOC4 ---
Operative Note Operative Note Date of surgery: 01/14/2020 Preoperative diagnosis: Left carpal tunnel syndrome Postoperative diagnosis: Same with moderate median nerve compression Operative procedure: Left carpal tunnel release Surgeon: Ольга Saloon Keeper: Brock thakkar Anesthesia: General Estimated blood loss: 2 cc Complications: None Operative indications: Please see my preoperative orthopedic consultation notes for detailed operative indications. Note that she had confirmed EMG findings of carpal tunnel syndrome and we had reviewed and talked through risks benefits postoperative course of the release procedure including the fact that she may not get an immediate or even complete relief over time that we take pressure off the nerve and the body has to re-myelinate and there may be possible complications of infection nerve or blood vessel damage continued pain especially around the incision medical or other anesthetic complications among others. She is familiar with the recovery process based on previous release on the right side which has done well and agrees to proceed with surgical treatment after having obtained informed consent Operative text: Patient was identified procedure verified patient placed in the supine position on the operating table. After adequate amounts of general anesthesia were obtained a tourniquet was placed on the upper arm and the left upper extremity was prepped and draped in standard sterile fashion. After timeout was performed patient procedure identified and verified left upper extremity was exsanguinated by Esmarch bandage tourniquet inflated to 250 mmHg and a midline incision was made just distal to the distal palmar crease the transverse carpal ligament was identified and sharply resected using a scalpel and finished with tenotomy scissors completing the proximal and distal resection which was verified visually and by palpation to be complete. Median nerve was noted to have moderate compression. Thorough irrigation carried out normal saline solution closure accomplished with nylon suture in vertical mattress fashion sterile soft dressings were applied patient was returned to recovery room in stable condition having tolerated procedure well. Brock thakkar was present for the procedure and assisted in patient positioning prepping draping retraction closure and dressings SALONI FIELDS MD Jan 14, 2020 13:02
== END 2020-01-14 11:30 | disposition home or self-care (01) ==
LOC: SURG 09:01
PROVIDERS: ATTEND Orthopaedic Surgery
DX: G56.02 Carpal tunnel syndrome, left upper limb (principal); J44.9 Chronic obstructive pulmonary disease, unspecified; Z88.8 Allergy status to other drugs, medicaments and biological substances; Z88.5 Allergy status to narcotic agent; Z79.899 Other long term (current) drug therapy
CPT/HCPCS: 64721; A7015; J0690; J1100; J2250; J2370; J2405; J2704; J3010

== ENCOUNTER → 2021-04-03 | Outpatient (CLI) | payer OTHER, MEDICAID ==
[~2021-04-03] MED LIST changes: -IV RINGERS,LACTATED 1000ML 1,000 ML IV SCH; -LIDOCAINE 1% PF 2 ML VIAL. ID PRN; +METH-561 PO; -METH500T7 PO; -NALO25TA2 PO; +NALO25TA4 PO; -OMEP40CA45 PO; +OMEP40CA7 PO; -ONDANSETRON PF 4 MG/2 ML VIAL. IV PRN; +OXYC-325 PO; -PROCHLORPERAZINE 10 MG/2 ML VIAL. IV PRN; -ceFAZolin SODIUM IV Push 1 GM VIAL. IVP PRN; -fentaNYL PF VIAL 100 MCG/2 ML VIAL IV PRN
--- NOTE | 2021-04-03 15:33 | RAD ---
Site ID: [id number] EXAMINATION: Left lower extremity duplex venous ultrasound. TECHNIQUE: DVT protocol. Multiple sonographic images with color Doppler and waveform interrogation we re performed of the left lower extremity veins with compression and augmentation maneuvers. INDICATION: 50 years Female, left leg Reason: LEFT LOWER LEG PAIN: . . FINDINGS: The left lower extremity veins from the groin to below the knee veins were examined with no rmal color-flow, compressibility and waveform demonstrated. Nonspecific slightly prominent left groin inguinal lymph node is seen. IMPRESSION: No evidence of DVT in the left lower extremity. Electronically signed by: David Shepherd MD (04/03/2021 3:30 PM) [id number]
== END ==
LOC: US 14:53
PROVIDERS: ATTEND Physician Assistant
DX: M79.662 Pain in left lower leg (principal)
CPT/HCPCS: 93971